=== PATIENT | male | born 1970 | race American Indian/Alaskan Native ===

== ENCOUNTER 2021-11-21 20:55 | Inpatient (IN) | payer SELFPAY ==
--- NOTE | 2021-11-21 21:17 | Emergency Department Report ---
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 According to EMS who provided the informations from the family who the EMS said that they were not very helpful (and likely not coming to the hospital); did not provide a medication list said that patient asked for orange juice and a family member went to the kitchen to get it and when the family member returned, they found the patient on the floor passed out and urinated on himself and also became slurred speech. According to the EMS patient has right-sided deficit from prior stroke and that is all they know of. SPOKE TO DR. DAVID; PENDING RECOMMENDATIONS. - Related Data Allergies Allergy/AdvReac Type Severity Reaction Status Date / Time aspirin Allergy Hives Verified 11/21/21 22:14 ED Review of Systems ROS: Stated complaint: POSS STROKE Other details as noted in HPI Comment: Unobtainable due to pts medical conditions ED Past Medical Hx - Past Medical History Previous Medical History?: Yes Hx Hypertension: Yes Hx CVA: Yes ED Physical Exam - General General appearance: alert - Head Head exam: Present: atraumatic, normocephalic, normal inspection - Eye Eye exam: Present: normal appearance, PERRL, EOMI Pupils: Present: normal accommodation - ENT ENT exam: Present: normal exam, mucous membranes moist - Neck Neck exam: Present: normal inspection, full ROM - Respiratory Respiratory exam: Present: normal lung sounds bilaterally - Cardiovascular Cardiovascular Exam: Present: regular rate - GI/Abdominal GI/Abdominal exam: Present: soft - Extremities Exam Extremities exam: Present: other (COMPLETE RIGHT SIDED WEAKNESS; UNABLE TO LIFT UP. LEFT LOWER EXTRMEITY WEAKNESS; SOME EFFORT AGAINST GRAVITY. 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) - Neurological Exam Neurological exam: Present: alert - Skin Skin exam: Present: normal color ED Course Vital Signs 11/21/21 11/21/21 11/21/21 20:55 21:34 21:45 Temperature 98 F Pulse Rate 101 H 105 H Respiratory 18 25 H Rate Blood Pressure 219/119 Blood Pressure [Left] O2 Sat by Pulse 98 93 98 Oximetry 0811/21/21 11/21/21 22:01 22:15 22:31 Temperature Pulse Rate 100 H 97 H 97 H Respiratory 28 H 28 H 28 H Rate Blood Pressure 219/119 211/111 215/110 Blood Pressure [Left] O2 Sat by Pulse 98 99 99 Oximetry 11/21/21 11/21/21 11/21/21 22:34 22:35 22:41 Temperature Pulse Rate 92 H 96 H 100 H Respiratory 27 H 25 H Rate Blood Pressure 211/119 218/116 Blood Pressure 211/119 [Left] O2 Sat by Pulse 98 98 Oximetry 11/21/21 11/21/21 11/21/21 22:45 22:51 22:55 Temperature Pulse Rate 104 H 106 H 106 H Respiratory 26 H 27 H 25 H Rate Blood Pressure 206/113 194/108 191/106 Blood Pressure [Left] O2 Sat by Pulse 98 97 97 Oximetry 11/21/21 11/21/21 11/21/21 23:01 23:05 23:11 Temperature Pulse Rate 111 H Respiratory Rate Blood Pressure 192/103 184/100 178/99 Blood Pressure [Left] O2 Sat by Pulse 96 96 97 Oximetry - Reevaluation(s) Reevaluation #1: 11/21/21 22:05 Since saw the patient patient has significant improvement. Spoke to the neurologist and neurology spoke to the patient which we will go and do tPA. Patient stated he was 265 pounds. I have informed the charge nurse and also the nurse that we will be doing tPA as time sensitive. 11/21/21 22:[address] QUEZADA; WAITING TO SPEAK TO DR. 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 ED Disposition Clinical Impression: Stroke, Acute pericarditis Disposition: ADMITTED INPATIENT Is pt being admited?: Yes Does the pt Need Aspirin: Yes Condition: Stable Time of Disposition: 22:43
--- NOTE | 2021-11-21 21:20 | Cat Scan Report ---
CT HEAD WITHOUT CONTRAST INDICATION / CLINICAL INFORMATION: STROKE. TECHNIQUE: All CT scans at this location are performed using CT dose reduction for ALARA by means of automated exposure control. COMPARISON: None available. FINDINGS: BRAIN PARENCHYMA: Large area of encephalomalacia involving the left parietal lobe related to remote i nfarct. Additional smaller areas of remote infarct of the right parietal lobe and bilateral occipital lobes. Moderate chronic small vessel ischemic changes. No evidence of recent infarct. No acute intra cranial hemorrhage. No mass effect or midline shift. VENTRICULAR SYSTEM/EXTRA-AXIAL SPACES: Ventricles are normal for age. No extra-axial fluid collection . ORBITS: Normal as visualized. SKELETAL SYSTEM/SOFT TISSUES: Normal bones and soft tissues. PARANASAL SINUSES/MASTOID AIR CELLS: No significant abnormality. ADDITIONAL FINDINGS: None. IMPRESSION: 1. No evidence of acute intracranial abnormality. 2. Chronic ischemic changes, as above. Signer Name: Shai Sky MD Signed: 11/21/2021 9:16 PM Workstation Name: [id number]
[2021-11-21 21:31] LABS: Hematocrit 47.5 % (35.5-45.6); Hemoglobin 15.4 gm/dl (11.8-15.2); Mean Corpuscular HGB Conc 32 % (32-34); Mean Corpuscular Volume 91 fl (84-94); Platelet Count 285 K/mm3 (140-440); Red Blood Count 5.24 M/mm3 (3.65-5.03); Red Cell Distribution Width 14.7 % (13.2-15.2)
[2021-11-21] MEDS ORDERED: SODIUM CHLORIDE 0.9% 1000 ML 1,000 ML IV ONE (21:32)
[2021-11-21 21:42] LABS: INR 0.92 (0.87-1.13)
[2021-11-21 21:43] LABS: Partial Thromboplastin Time 25.2 Sec. (24.2-36.6)
[2021-11-21 21:48] LABS: Alanine Aminotransferase 12 units/L (7-56); Albumin 4.3 g/dL (3.9-5); BUN/Creatinine Ratio 16; Blood Urea Nitrogen 13 mg/dL (9-20); Calcium 9.8 mg/dL (8.4-10.2); Hemolysis Index 32
--- NOTE | 2021-11-21 21:51 | XRay Report ---
XR chest 1V ap INDICATION / CLINICAL INFORMATION: STROKE. COMPARISON: None available. FINDINGS: SUPPORT DEVICES: None. HEART /PULMONARY VASCULATURE: Cardiac enlargement with pulmonary vasculature congestion. LUNGS / PLEURA: Diffuse increased interstitial prominence, likely reflecting edema. No focal airspace consolidation. No sizable pleural effusion. No pneumothorax. ADDITIONAL FINDINGS: No significant additional findings. IMPRESSION: Findings indicative of volume overload/CHF with interstitial edema. Signer Name: Shai Sky MD Signed: 11/21/2021 9:47 PM Workstation Name: [id number]
[2021-11-21] MEDS ORDERED: SODIUM CHLORIDE 0.9% 50 ML IVPB IV ONE (22:01)
[2021-11-21] MEDS ORDERED: niCARdipine DRIP 40 MG/200 ML BAG IV ONE (22:01)
[2021-11-21] MEDS ORDERED: ALTEPLASE 100 MG INJ KIT IV ONE ×2 (22:01)
--- NOTE | 2021-11-21 22:07 | Emergency Department Report ---
Blank Doc - Documentation Documentation: [facility] Consult Note # Demographics Consult Type: Acute Stroke Level 1 (0-4.5 hrs) Patient Location: Emergency Room First Name: Ross Last Name: Kyara Date of : 1970 Age: 51 Facility: [facility] Time of Initial Page (Eastern Time): 11/21/2021, 20:41 Time of Return Call (Eastern Time): 11/21/2021, 20:41 # HPI History: 51 year old male with hx of prior stroke with right sided weakness that is old. Family member found him on the floor. Patient was doing fine talking to familydember when they stepped out and when came back patient was on the floor. Found to have new weakness on the left side. Unclear if patient on blood thinners. Patient states he is on plavix. Brother at bedside states he was confused earlier but now improving. Last Known Normal: 8 pm # Scores Level of Consciousness 1a: [1] = Not alert; but arousable by minor stim LOC Questions 1b: [1] = Answers one correctly LOC Commands 1c: [0] = Performs both tasks correctly Best Gaze 2: [0] = Normal Visual 3: [0] = No visual loss Facial Palsy 4: [0] = Normal symmetrical movements Motor Arm Left 5a: [0] = No drift Motor Arm Right 5b: [0] = No drift Motor Leg Left 6a: [0] = No drift Motor Leg Right 6b: [3] = No effort against gravity Limb Ataxia 7: [0] = Absent Sensory 8: [0] = Normal Best Language 9: [1] = Jgbr-ap-jqnhdcno aphasia Dysarthria 10: [1] = Hdyx-sn-inoeaini dysarthria Extinction and Inattention 11: [0] = No abnormality NIHSS Total: 7 # PMH-FH-SH Past Medical History: stroke Medications: plavix # Data Head CT: no bleed per radiologist read # Assessment Impression: 51 year old, found on the floor by brother. Hx of stroke in the past but new deficits of dysarthria, aphasia as well as drowsiness. Concerned about another stroke. Recommend tpa. Patient is within the window # Plan Thrombolytic/Intervention: IV thrombolytic and possible IA candidate Thrombolytic Dosing: IV alteplase 0.9 mg/kg, max dose 90 mg; 10% of dose given over 1 minute IVP, remaining 90% given as infusion over 1 hour Possible IA Candidate: CTA pending Time IV Thrombolytic Recommended ([place] Time): 11/21/2021, 21:05 Target Blood Pressure: SBP < 180 SBP > 120 DBP < 105 Labs: CBC comprehensive metabolic panel hemoglobin A1c lipid panel troponin TSH urine drug screen ua Imaging: (urgency: STAT): CT Head without contrast CT Angiogram Head and CT Angiogram Neck Imaging: (urgency: routine): MRI Brain without contrast Diagnostic Test: echo with bubble study Therapy/Evaluation: PT/OT evaluation speech/swallow consultation Thrombolytic Administration Recommendations: I reviewed the risks/benefits/alternatives of IV thrombolytic therapy with the patient. They understand there is potential of life threatening hemorrhage from IV thrombolysis. I stated that I believe benefits outweighs risk. They wish to proceed with IV thrombolytic therapy. I have collected independent history specific to time last normal or last known well. We have collaborated with the ED provider and at this time, we have the most current timeline with the information that is available. BP goal< 180/105 for 24hrs post Thrombolytic administration Use Labetolol 10-20mg IV prn or Nicardipine gtt to maintain BP parameters No antiplatelets or anticoagulants for next 24 hrs unless indicated for emergent IA procedure or other life threatening situation ICU admission Call back if there is any decline in neurological condition Transfer to facility that is IA capable for consideration of mechanical thrombectomy symptoms deemed to be disabling, despite low NIHSS Other: If patient has any neurological deterioration please call me back immediately telemetry monitoring seizure precautions I have discussed my recommendations with the referring provider Disposition: admit # Demographics First Name: Ross Last Name: Kyara Facility: [facility]
[2021-11-21 22:22] LABS: Chol/HDL Ratio 7.31 %; HDL Cholesterol 32 mg/dL (40-59); LDL Cholesterol,Direct 168 mg/dL (50-130)
[2021-11-21] MEDS ORDERED: ACETAMINOPHEN 325 MG TAB PO PRN (23:12)
[2021-11-21] MEDS ORDERED: ONDANSETRON 4 MG/2 ML INJ IV PRN (23:12)
[2021-11-21] MEDS ORDERED: DEXTROSE 50% IN WATER (25GM) 50 ML SYRINGE IV PRN (23:12)
[2021-11-21] MEDS ORDERED: ALBUTEROL 2.5 MG/3 ML NEBU IH PRN (23:19)
[2021-11-21] MEDS ORDERED: MORPHINE 4 MG/1 ML INJ IV PRN (23:19)
[2021-11-21] MEDS ORDERED: MORPHINE 2 MG/1 ML INJ IV PRN (23:19)
--- NOTE | 2021-11-21 23:28 | History and Physical Report ---
History of Present Illness Date of examination: 11/21/21 Date of admission: 11/21/21 Chief complaint: Slurred speech Stroke like symptoms History of present illness: 51-year-old male with medical history of CVA, hypertension , most likely diabetes was brought in by EMS with concerns of possible stroke-like symptoms. According to EMS who provided the informations from the family who the EMS said that they were not very helpful (and likely not coming to the hospital); did not provide a medication list said that patient asked for orange juice and a family member went to the kitchen to get it and when the family member returned, they found the patient on the floor passed out and urinated on himself and also became slurred speech. According to the EMS patient has right-sided deficit from prior stroke and that is all they know of. In the emergency room initial CT scan of the head shows no evidence of acute intracranial abnormality. Chronic ischemic changes. Subsequently patient was seen and evaluated by telemetry neurology and patient is getting tPA. Patient also has elevated blood pressure patient is on Cardene drip. Patient also found to have acute pericarditis as per ER physician, In the emergency room patient is found to have glucose of 264, lactic acid 2.60, total cholesterol of 234, triglyceride 156, LDL 168 Past History Past Medical History: diabetes, hypertension, stroke Past Surgical History: No surgical history Social history: no significant social history Family history: hypertension Medications and Allergies Allergies Allergy/AdvReac Type Severity Reaction Status Date / Time aspirin Allergy Hives Verified 11/21/21 22:14 Active Meds: Active Medications Nicardipine/Sodium Chloride (Cardene Drip 40 Mg/200 Ml) 40 mg in 200 mls @ 25 mls/hr IV ONCE ONE; Protocol Stop: 11/22/21 06:00 Last Titration: 11/21/21 23:13 Dose: 15 mg/hr, 75 mls/hr Review of Systems All systems: negative Neurological: weakness, change in speech Exam - Constitutional Vitals: Temp Pulse Resp BP Pulse Ox 98 F 111 H 25 H 178/99 97 11/21/21 20:55 11/21/21 23:11 11/21/21 22:55 11/21/21 23:11 11/21/21 23:11 General appearance: Present: no acute distress, well-nourished - EENT Eyes: Present: PERRL ENT: hearing intact, clear oral mucosa - Neck Neck: Present: supple, normal ROM - Respiratory Respiratory effort: normal Respiratory: bilateral: CTA - Cardiovascular Heart Sounds: Present: S1 & S2. Absent: rub, click - Extremities Extremities: pulses symmetrical, No edema Peripheral Pulses: within normal limits - Abdominal General gastrointestinal: Present: soft, non-tender, non-distended, normal bowel sounds Male genitourinary: Present: normal - Integumentary Integumentary: Present: clear, warm, dry - Musculoskeletal Musculoskeletal: gait normal, strength equal bilaterally - Psychiatric Psychiatric: appropriate mood/affect, intact judgment & insight - Neurologic Neurologic: CNII-XII intact, moves all extremities, other (Slurred speech,) HEART Score - HEART Score Troponin: Troponin T < 0.010 ng/mL (0.00-0.029) 11/21/21 21:25 Results - Labs CBC & Chem 7: 11/21/21 21:25 11/21/21 21:25 Labs: Laboratory Last Values WBC 12.1 K/mm3 (4.5-11.0) H 11/21/21 21:25 RBC 5.24 M/mm3 (3.65-5.03) H 11/21/21 21:25 Hgb 15.4 gm/dl (11.8-15.2) H 11/21/21 21:25 Hct 47.5 % (35.5-45.6) H 11/21/21 21:25 MCV 91 fl (84-94) 11/21/21 21:25 MCH 29 pg (28-32) 11/21/21 21: MCHC 32 % (32-34) 11/21/21 21:25 RDW 14.7 % (13.2-15.2) 11/21/21 21:25 Plt Count 285 K/mm3 (140-440) 11/21/21 21:25 PT 13.3 Sec. (12.2-14.9) 11/21/21 21:25 INR 0.92 (0.87-1.13) 11/21/21 21:25 APTT 25.2 Sec. (24.2-36.6) 11/21/21 21:25 Sodium 139 mmol/L (137-145) 11/21/21 21:25 Potassium 3.8 mmol/L (3.6-5.0) 11/21/21 21:25 Chloride 103.5 mmol/L (98-107) 11/21/21 21:25 Carbon Dioxide 19 mmol/L (22-30) L 11/21/21 21:25 Anion Gap 20 mmol/L 11/21/21 21:25 BUN 13 mg/dL (9-20) 11/21/21 21:25 Creatinine 0.8 mg/dL (0.8-1.3) 11/21/21 21:25 Estimated GFR > 60 ml/min 11/21/21 21:25 BUN/Creatinine Ratio 16 % 11/21/21 21:25 Glucose 264 mg/dL (75-100) H 11/21/21 21:25 Lactic Acid 2.60 mmol/L (0.7-2.0) H* 11/21/21 22:01 Calcium 9.8 mg/dL (8.4-10.2) 11/21/21 21:25 Magnesium 1.90 mg/dL (1.7-2.3) 11/21/21 21:25 Total Bilirubin 0.50 mg/dL (0.1-1.2) 11/21/21 21:25 AST 16 units/L (5-40) 11/21/21 21:25 ALT 12 units/L (7-56) 11/21/21 21:25 Alkaline Phosphatase 81 units/L (35-129) 11/21/21 21:25 Total Creatine Kinase 141 units/L (55-170) 11/21/21 22:01 Troponin T < 0.010 ng/mL (0.00-0.029) 11/21/21 21:25 NT-Pro-B Natriuret Pep 474.9 pg/mL (0-450) H 11/21/21 21:25 Total Protein 7.4 g/dL (6.3-8.2) 11/21/21 21:25 Albumin 4.3 g/dL (3.9-5) 11/21/21 21:25 Albumin/Globulin Ratio 1.4 % 11/21/21 21:25 Triglycerides 156 mg/dL (2-149) H 11/21/21 21:25 Cholesterol 234 mg/dL (50-199) H 11/21/21 21:25 LDL Cholesterol Direct 168 mg/dL (50-130) H 11/21/21 21:25 HDL Cholesterol 32 mg/dL (40-59) L 11/21/21 21:25 Cholesterol/HDL Ratio 7.31 % 11/21/21 21:25 Plasma/Serum Alcohol < 0.01 % (0-0.07) 11/21/21 22:01 - Imaging and Cardiology Chest x-ray: report reviewed CT Scan - head: report reviewed Assessment and Plan VTE prophylaxis?: Chemical Plan of care discussed with patient/family: Yes - Patient Problems (1) Stroke Current Visit: Yes Status: Acute Plan to address problem: Admit the patient to the critical care unit. NPO. Normal saline at the rate of 100 cc/h. Patient is getting tPA. Lipitor 40 mg p.o. daily. MRI of the brain and MRA of the brain and neck with and without contrast. Neurology evaluation. (2) Hypertension Current Visit: Yes Status: Acute Plan to address problem: Labetalol 20 mg IV x1. Patient is on nicardipine drip as per protocol. We will monitor the blood pressure closely (3) Hyperglycemia Current Visit: Yes Status: Acute Plan to address problem: Accu-Chek every 6 hours with Humalog moderate dose coverage. Diabetic education. We continue the home medication (4) Lactic acidosis Current Visit: Yes Status: Acute Plan to address problem: Normal saline at the rate of 100 cc/h. Rocephin 2 g IV daily. We will recheck the lactic acid in 4 hours (5) Acute pericarditis Current Visit: Yes Status: Acute Plan to address problem: Patient is a status post tPA. Lipitor 40 mg p.o. daily. Tylenol 650 mg p.o. every 6 hours as needed. Echocardiogram. Cardiology evaluation. (6) Hyperlipidemia Current Visit: Yes Status: Acute Plan to address problem: Lipitor 40 mg p.o. daily. We will recheck the lipid panel (7) DVT prophylaxis Current Visit: Yes Status: Acute Plan to address problem: SCD for DVT prophylaxis because patient is a status post tPA. Pepcid 20 mg IV every 12 hours for GI prophylaxis. Patient is a full code
[2021-11-21] MEDS ORDERED: SODIUM CHLORIDE 0.9% 1000 ML 1,000 ML IV SCH (23:30)
[2021-11-21] MEDS ORDERED: cefTRIAXone/NS 2 GM/100 ML 2 GM/100 ML BAG IV SCH (23:45)
--- NOTE | 2021-11-22 09:47 | Electrocardiograph Report ---
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
--- NOTE | 2021-11-22 09:47 | Electrocardiograph Report ---
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
[2021-11-22] MEDS ORDERED: FAMOTIDINE 20 MG/2 ML INJ IV SCH (10:00)
[2021-11-22] MEDS: IPRATROPIUM/ALBUTEROL SULFATE 3 ML AMPUL.NEB IH SCH ×4 (10:07→20:17)
[2021-11-22] MEDS: INSULIN LISPRO 100 UNIT/ML SUB-Q SCH ×3 (10:07→21:48)
[2021-11-22 10:40] LABS: Hemoglobin 15.4 gm/dl (11.8-15.2); Mean Corpuscular HGB Conc 33 % (32-34); Mean Corpuscular Volume 89 fl (84-94); Platelet Count 263 K/mm3 (140-440); Red Blood Count 5.15 M/mm3 (3.65-5.03)
[2021-11-22 11:03] LABS: Blood Urea Nitrogen 10 mg/dL (9-20); Calcium 9.7 mg/dL (8.4-10.2); Hemolysis Index 8
[2021-11-22 11:28] LABS: BUN/Creatinine Ratio 17
--- NOTE | 2021-11-22 11:36 | Consultation ---
History of Present Illness - Reason for Consult Consult date: 11/22/21 s/p TPA for stroke - History of Present Illness 51 y/o obese, male with prior history of CVA's admitted with stroke like sy mptoms s/p TPA and admitted to ICU for 24 hour observation post TPA. Past History Past Medical History: diabetes, hypertension, stroke Past Surgical History: No surgical history Social history: no significant social history Family history: hypertension Medications and Allergies Allergies Allergy/AdvReac Type Severity Reaction Status Date / Time aspirin Allergy Hives Verified 11/21/21 22:14 Active Meds: Active Medications Acetaminophen (Acetaminophen 325 Mg Tab) 650 mg PO Q4H PRN PRN Reason: Pain MILD(1-3)/Fever >100.5/BANUELOS Albuterol (Albuterol 2.5 Mg/3 Ml Nebu) 2.5 mg IH Q3HRT PRN PRN Reason: Shortness Of Breath Albuterol/Ipratropium (Ipratropium/Albuterol Sulfate 3 Ml Ampul.Neb) 1 ampul IH Q6HRT [facility] Last Admin: 11/22/21 11:07 Dose: 1 ampul Atorvastatin Calcium (Atorvastatin 40 Mg Tab) 40 mg PO QHS SHARON Dextrose (Dextrose 50% In Water (25gm) 50 Ml Syringe) 50 ml IV Q30MIN PRN; Protocol PRN Reason: Hypoglycemia Famotidine (Famotidine 20 Mg/2 Ml Inj) 20 mg IV BID [facility] Last Admin: 11/22/21 11:22 Dose: 20 mg Insulin Human Lispro (Insulin Lispro 100 Unit/Ml) 0 unit SUB-Q Q6HR SHARON; P rotocol Last Admin: 11/22/21 10:07 Dose: Not Given Ondansetron HCl (Ondansetron 4 Mg/2 Ml Inj) 4 mg IV Q8H PRN PRN Reason: Nausea And Vomiting Sodium Chloride (Sodium Chloride 0.9% 10 Ml Flush Syringe) 10 ml IV BID [facility] Last Admin: 11/22/21 11:22 Dose: 10 ml Sodium Chloride (Sodium Chloride 0.9% 10 Ml Flush Syringe) 10 ml IV PRN PRN PRN Reason: LINE FLUSH Review of Systems All systems: negative Exam - Constitutional Vitals: Temp Pulse Resp BP Pulse Ox 97.8 F 86 25 H 162/99 94 11/22/21 10:02 11/22/21 11:17 11/22/21 11:17 11/22/21 09:14 11/22/21 11:17 General appearance: Present: no acute distress, obese - EENT Eyes: Present: PERRL ENT: hearing intact - Neck Neck: Present: supple, normal ROM, other (large in circumference) - Respiratory Respiratory effort: normal Respiratory: bilateral: CTA Results - Labs CBC & Chem 7: 11/22/21 10:00 11/22/21 10:00 Labs: Abnormal lab results 11/21/21 11/21/21 11/21/21 Range/Units 21:25 21:25 21:25 WBC 12.1 H (4.5-11.0) K/mm3 RBC 5.24 H (3.65-5.03) M/mm3 Hgb 15.4 H (11.8-15.2) gm/dl Hct 47.5 H (35.5-45.6) % Sodium (137-145) mmol/L Carbon Dioxide 19 L (22-30) mmol/L Creatinine (0.8-1.3) mg/dL Glucose 264 H (75-100) mg/dL POC Glucose (70-105) mg/dL Hemoglobin A1c (4-6) % Lactic Acid (0.7-2.0) mmol/L NT-Pro-B Natriuret Pep 474.9 H (0-450) pg/mL Triglycerides 156 H (2-149) mg/dL Cholesterol 234 H (50-199) mg/dL LDL Cholesterol Direct 168 H (50-130) mg/dL HDL Cholesterol 32 L (40-59) mg/dL 11/21/21 11/22/21 11/22/21 Range/Units 22:01 06:38 10:00 WBC 12.7 H (4.5-11.0) K/mm3 RBC 5.15 H (3.65-5.03) M/mm3 Hgb 15.4 H (11.8-15.2) gm/dl Hct 46.0 H (35.5-45.6) % Sodium (137-145) mmol/L Carbon Dioxide (22-30) mmol/L Creatinine (0.8-1.3) mg/dL Glucose (75-100) mg/dL POC Glucose 188 H (70-105) mg/dL Hemoglobin A1c (4-6) % Lactic Acid 2.60 H* (0.7-2.0) mmol/L NT-Pro-B Natriuret Pep (0-450) pg/mL Triglycerides (2-149) mg/dL Cholesterol (50-199) mg/dL LDL Cholesterol Direct (50-130) mg/dL HDL Cholesterol (40-59) mg/dL 11/22/21 11/22/21 Range/Units 10:00 10:00 WBC (4.5-11.0) K/mm3 RBC (3.65-5.03) M/mm3 Hgb (11.8-15.2) gm/dl Hct (35.5-45.6) % Sodium 135 L (137-145) mmol/L Carbon Dioxide (22-30) mmol/L Creatinine 0.6 L (0.8-1.3) mg/dL Glucose 160 H (75-100) mg/dL POC Glucose (70-105) mg/dL Hemoglobin A1c 8.4 H (4-6) % Lactic Acid (0.7-2.0) mmol/L NT-Pro-B Natriuret Pep (0-450) pg/mL Triglycerides (2-149) mg/dL Cholesterol (50-199) mg/dL LDL Cholesterol Direct (50-130) mg/dL HDL Cholesterol (40-59) mg/dL - Imaging and Cardiology Chest x-ray: image reviewed (cardiomegaly with pulmonary vascular congestion, could be pulmonary edema) Assessment and Plan 51 y/o obese male with prior history of strokes admitted with stroke like symptoms s/p TPA 1. Await neurology recs. Assuming this is an ischemic stroke, they usually like to run pressures slightly high patient has systolics in the 200' and diatolic's >100. Needs to be addressed. Per patient, always high. would like to treat but need to see where neuro feels comfortable with BP. 2. Per patient symptoms about the same, no real improvement, getting echo now. Continue q1 hour neuro checks 3. Needs repeat Head CT vs MRI 4. Per patient was on daily plavix and did not miss any doses 5. Follow up echo 6. Weight loss and dietary changes. Guarded prognosis.
[2021-11-22] MEDS ORDERED: FUROSEMIDE 20 MG/2 ML INJ IV ONE (11:57)
--- NOTE | 2021-11-22 12:15 | Cat Scan Report ---
CTA neck without and with intravenous contrast material CLINICAL HISTORY: cva TECHNIQUE: Following acquisition of a timing bolus 0.625 mm thick contiguous axial scans were obtained from aort ic arch to the skull base during rapid bolus intravenous contrast infusion. In addition to evaluation of axial source images multiplanar reconstructions were produced and reviewed for this report. 3 henrietta ne MIP reconstructions were produced and reviewed. Contrast dose report: Omnipaque 350: 100 ml, administered intravenously All CT examinations performed at this facility utilize modulated dose reduction, iterative reconstruc tion or weight-based dosing, as appropriate, to obtain a radiation dose which is as low as can reason ably be achieved. FINDINGS: Thoracic aorta:No abnormalities are identified along the course of the thoracic aorta..The origins of the great vessels have an unremarkable appearance. Brachiocephalic artery, left common carotid arter y origin and left subclavian artery all have an unremarkable appearance. Right carotid artery: Combination of calcified and soft plaque is observed at the right carotid bulb extending into the proximal R ICA. There is no associated stenosis. Right common carotid artery has a normal appearance. Mid and distal cervical segments of the right internal carotid artery have a norm al appearance. Left carotid artery: Mild calcified plaque is observed at the left carotid bulb extending into the pr oximal LICA. There is no associated stenosis. Left common carotid artery has a normal appearance. Mid and distal LICA have a normal appearance. Posterior circulation:The vertebral arteries have an unremarkable appearance. Both vertebral arteries contribute to the basilar artery origin. The basilar artery has an unremarkable appearance. The degree of stenosis, if any, is determined utilizing NASCET like criteria. In this case there is no indication of hemodynamically significant stenosis at the carotid bifurcations or elsewhere. Evaluation of the nonvascular soft tissue structures reveal no abnormality. There is no indication of cervical lymphadenopathy. No abnormalities are seen along the course of the airway. Visualized porti ons of the parotid glands and the submandibular salivary glands have a normal appearance. Thyroid gla nd has a normal appearance. Evaluation of the lung apices reveals no evidence of lung nodule or infil trate. Evaluation of the cervical spine revealed no significant abnormalities. IMPRESSION: 1. No indication of hemodynamically significant stenosis at the carotid bifurcations or elsewhere. CTA head with intravenous contrast CLINICAL HISTORY: cva TECHNIQUE: 0.625 mm thick contiguous axial scans were obtained from the skull base to the skull vertex during r apid bolus administration of intravenous contrast material. Multiplanar reconstructions were produced in the coronal and sagittal planes. In addition 3 plane MIP instructions were produced and reviewed for this report. The axial source images and reconstructed images were reviewed for this report. CONTRAST DOSE REPORT: Blank: Contrast dose ml administered intravenously. All CT scans at this location are performed using CT dose reduction for ALARA by means of automated e xposure control. FINDINGS: Internal carotid arteries: Calcified atherosclerotic plaque is observed along the cavernous segments of both internal carotid arteries. This extends into the clinoid segments bilaterally. This is associ ated with stenosis. Maximum degree of stenosis is present in the cavernous segment of the right R ICA where a stenosis on the order of 70% is identified. Middle cerebral arteries:Normal and symmetrical M1 segments of the middle cerebral arteries are demon strated. No abnormalities are seen on evaluation of the insular or opercular branches. Anterior cerebral arteries:Bilaterally symmetrical A1 segments are demonstrated. No abnormalities are seen along the course of the A2 segments or their visualized pericallosal branches. An intact anteri or communicating artery is observed. Vertebral arteries:Bilaterally symmetrical vertebral arteries are demonstrated. Both vertebral arteri es contribute to the basilar artery origin. Basilar artery:Basilar artery has an unremarkable appearance. Posterior cerebral arteries:Bilaterally symmetrical posterior cerebral arteries are identified. Post erior communicating arteries are not identified. [place]:Not intact. see above. Dural sinuses: Dural venous sinuses are well demonstrated on this exam. There is no evidence of dural sinus thrombosis. IMPRESSION: 1. Calcified atherosclerotic plaque is observed along the cavernous segments of both internal carotid arteries. There is a stenosis on the order of 70% severity in the right cavernous sinus IAC. 2. Otherwise no indication of hemodynamically significant intracranial stenosis. No indication of lar ge vessel occlusion. Signer Name: Sanchez Anderson MD Signed: 11/22/2021 12:11 PM Workstation Name: [id number]
[2021-11-22 12:53] LABS: Mucus,Urine FEW /HPF
[2021-11-22 13:03] LABS: Color,Urine Straw (Yellow)
--- NOTE | 2021-11-22 13:41 | Progress Note ---
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, decreased peripheral vision and stutter), HTN, IA (2019), HLD, and gout admitted with CVA Neuro: CVA, h/o CVA (2020) with residual left-sided weakness, decreased peripheral vision and stutter -Neurology consulted, appreciate recommendations -Per documentation family noted left-sided weakness -LKW 8 PM 11/21 -Initial NIHSS 7 -S/p tPA -Initial CT head shows no evidence of acute intracranial abnormality, chronic ischemic changes -CTA neck no indication of hemodynamic significant stenosis of the carotid bifurcations or elsewhere -CTA head shows calcified atherosclerotic plaque observed along the cavernous segments of both internal carotid arteries, stenosis in the order of 70% severity in the right cavernous sinus IAC, otherwise no indication of hemodynamically significant intracranial stenosis, no indication of large vessel occlusion -MRI brain pending -[address] head at 2200 11/22 -Echo pending -Per teleneurology blood pressure goal of less than 180/105 for 24 hours post tPA -labetalol as needed -Patient's home medication includes donepezil, lisinopril, metoprolol, amlodipine, citalopram, Plavix and Lipitor -Lipid panel noted -Neuro checks per protocol -Patient has allergy to aspirin -Started on Lipitor -Reorientation as needed -Maintain sleep-wake cycle -As needed analgesia -PT/OT/ST consulted -Resume home Celexa Cardiac: Hypertensive emergency, h/o HTN, IA (2019), HLD -Presented with 219/119 -given labatalol, cardent gtt not started -Cardiology consulted, appreciate recommendations -ED concerned about pericarditis from ECG from admit -Blood pressure monitoring per protocol -prn labatalol -Echocardiogram pending -Home meds include amlodipine, lisinopril, metoprolol, and Lipitor -Admit probnp 474 -Lasix Respiratory: Acute hypoxic respiratory failure -Patient was on nasal cannula weaned to room air -Supplemental oxygen as needed -SPO2 monitor per protocol -Pulmonary hygiene GI: Obesity -Passed bedside swallow evaluation -CC cardiac diet -PPI -BR: Colace. -Encourage weight loss and dietary changes outpatient : Slight hyponatremia -Monitor intake and output -Renally dose medications -Avoid nephrotoxic medications -Trend BMP ID: SIRS, POA -Presented with leukocytosis, lactic acidosis, CXR with volume overload/CHF with interstitial edema -Lactic acid 2.6 on admit, now 1.3 -Monitor WBC and temperature curve Endo: DM -Hemaglobin 8.4 -SSI -Accu-Cheks ACHS -Avoid hypoglycemia Heme: Leukocytosis -Trend CBC -Transfuse hemoglobin less than 7 -SCDs to BLE while in bed The high probability of a clinically significant, sudden or life threatening deterioration of the [neuro] system(s) required my full and direct attention, intervention and personal management. The aggregate critical care time was [60] minutes. This time is in addition to time spent performing reported procedures but includes the following: [x] Data Review and interpretation [x] Patient assessment and monitoring of vital signs [x] Documentation [x] Medication orders and management Disposition Plan: icu Total Time Spent with Patient (Minutes): 60 History Interval history: This is a 51-year-old male with CVA in 2020 with residual right-sided weakness for which he uses a wheelchair for mobility, decreased peripheral vision and stutter, hypertension, IA in 2019, gout, hyperlipidemia presented to the [facility] department 11/21 via EMS for possible strokelike symptoms. In the emergency department she was evaluated by teleneurology with initial NIHSS of 7 and deemed he was a candidate for tPA. In the emergency department patient's ECG was also concerning for pericarditis to the ED physician. Patient was hypertensive in the ED and was started on a Cardene drip. Patient was admitted to the hospital service with consults to [facility], cardiology and neurology. Hospital course to date: 11/22: Patient hypertensive, as needed labetalol ordered. Home medications include amlodipine, citalpram, Plavix, donepezil, lisinopril, metoprolol and Lipitor. Passed swallow eval. Started on CC cardiac diet. ECG reviewed, no diffuse ST elevation noted. Per technology services manager, patient does have a small pericardial effusion. Hospitalist Physical - Constitutional Vitals: Temp Pulse Resp BP Pulse Ox 97.9 F 84 21 171/99 94 11/22/21 12:00 11/22/21 12:16 11/22/21 12:16 11/22/21 12:16 11/22/21 12:16 General appearance: Present: no acute distress, obese - EENT Eyes: Present: PERRL, discharge (per patient, n peripheral vision since prior CV A) - Neck Neck: Present: normal ROM - Respiratory Respiratory effort: normal Respiratory: bilateral: diminished - Cardiovascular Rhythm: regular Heart Sounds: Present: S1 & S2. Absent: systolic murmur, diastolic murmur - Extremities Extremities: no ischemia, pulses intact, pulses symmetrical, No edema, normal temperature, normal color Peripheral Pulses: within normal limits - Abdominal General gastrointestinal: soft, non-tender, non-distended, normal bowel sounds - Integumentary Integumentary: Present: warm, dry - Psychiatric Psychiatric: cooperative, other (stutter at baseline) - Neurologic Neurologic: other (right sided weakness, RLE drift) - Allied Health Allied health notes reviewed: nursing, RT HEART Score - HEART Score Troponin: Troponin T < 0.010 ng/mL (0.00-0.029) 11/21/21 21:25 Results - Labs CBC & Chem 7: 11/22/21 10:00 11/22/21 10:00 Labs: Laboratory Last Values WBC 12.7 K/mm3 (4.5-11.0) H 11/22/21 10:00 RBC 5.15 M/mm3 (3.65-5.03) H 11/22/21 10:00 Hgb 15.4 gm/dl (11.8-15.2) H 11/22/21 10:00 Hct 46.0 % (35.5-45.6) H 11/22/21 10:00 MCV 89 fl (84-94) 11/22/21 10:00 MCH 30 pg (28-32) 11/22/21 10:00 MCHC 33 % (32-34) 11/22/21 10:00 RDW 15.0 % (13.2-15.2) 11/22/21 10:00 Plt Count 263 K/mm3 (140-440) 11/22/21 10:00 PT 13.3 Sec. (12.2-14.9) 11/21/21 21:25 INR 0.92 (0.87-1.13) 11/21/21 21:25 APTT 25.2 Sec. (24.2-36.6) 11/21/21 21:25 Sodium 135 mmol/L (137-145) L 11/22/21 10:00 Potassium 4.0 mmol/L (3.6-5.0) 11/22/21 10:00 Chloride 99.7 mmol/L (98-107) 11/22/21 10:00 Carbon Dioxide 22 mmol/L (22-30) 11/22/21 10:00 Anion Gap 17 mmol/L 11/22/21 10:00 BUN 10 mg/dL (9-20) 11/22/21 10:00 Creatinine 0.6 mg/dL (0.8-1.3) L 11/22/21 10:00 Estimated GFR > 60 ml/min 11/22/21 10:00 BUN/Creatinine Ratio 17 % 11/22/21 10:00 Glucose 160 mg/dL (75-100) H 11/22/21 10:00 POC Glucose 188 mg/dL (70-105) H 11/22/21 06:38 Hemoglobin A1c 8.4 % (4-6) H 11/22/21 10:00 Lactic Acid 1.30 mmol/L (0.7-2.0) 11/22/21 00:15 Calcium 9.7 mg/dL (8.4-10.2) 11/22/21 10:00 Magnesium 1.90 mg/dL (1.7-2.3) 11/21/21 21:25 Total Bilirubin 0.50 mg/dL (0.1-1.2) 11/21/21 21:25 AST 16 units/L (5-40) 11/21/21 21:25 ALT 12 units/L (7-56) 11/21/21 21:25 Alkaline Phosphatase 81 units/L (35-129) 11/21/21 21:25 Total Creatine Kinase 141 units/L (55-170) 11/21/21 22:01 Troponin T < 0.010 ng/mL (0.00-0.029) 11/21/21 21:25 NT-Pro-B Natriuret Pep 474.9 pg/mL (0-450) H 11/21/21 21:25 Total Protein 7.4 g/dL (6.3-8.2) 11/21/21 21:25 Albumin 4.3 g/dL (3.9-5) 11/21/21 21:25 Albumin/Globulin Ratio 1.4 % 11/21/21 21:25 Triglycerides 156 mg/dL (2-149) H 11/21/21 21:25 Cholesterol 234 mg/dL (50-199) H 11/21/21 21:25 LDL Cholesterol Direct 168 mg/dL (50-130) H 11/21/21 21:25 HDL Cholesterol 32 mg/dL (40-59) L 11/21/21 21:25 Cholesterol/HDL Ratio 7.31 % 11/21/21 21:25 Urine Color Straw (Yellow) 11/21/21 11:55 Urine Turbidity Clear (Clear) 11/21/21 11:55 Specific [place] (Man) 1.005 (1.003-1.030) 11/21/21 11:55 Ur Protein (Man) 1+ mg/dL (Negative) 11/21/21 11:55 Ur Ketones (Man) Negative (Negative) 11/21/21 11:55 Ur Nitrite (Man) Negative (Negative) 11/21/21 11:55 Ur Reducing Substances Not Reportable 11/21/21 11:55 Urine Bilirubin (Man) Negative (Negative) 11/21/21 11:55 Urine Ictotest Not Reportable 11/21/21 11:55 Leukocyte Esterase (Man) Negative (Negative) 11/21/21 11:55 Urine WBC (Auto) 3.0 /HPF (0.0-6.0) 11/21/21 11:55 Urine RBC (Auto) 2.0 /HPF (0.0-6.0) 11/21/21 11:55 U Epithel Cells (Auto) 1.0 /HPF (0-13.0) 11/21/21 11:55 Urine RBC (Manual) 4+ (Negative) 11/21/21 11:55 Urine Mucus Few /HPF 11/21/21 11:55 Plasma/Serum Alcohol < 0.01 % (0-0.07) 11/21/21 22:01 Matta/IV: Voiding Method Condom Catheter Active Medications - Current Medications Current Medications: Generic Name Dose Route Start Last Admin Trade Name Freq PRN Reason Stop Dose Admin Acetaminophen 650 mg 11/21/21 23:12 Acetaminophen 325 Mg Tab PO Q4H PRN Pain MILD(1-3)/Fever >100.5/BANUELOS Albuterol 2.5 mg 11/21/21 23:19 Albuterol 2.5 Mg/3 Ml Nebu IH Q3HRT PRN Shortness Of Breath Albuterol/Ipratropium 1 ampul 11/22/21 02:00 11/22/21 11:07 Ipratropium/Albuterol Sulfate 3 Ml Ampul.Neb IH 1 ampul Q6HRT SHARON Administration Atorvastatin Calcium 40 mg 11/22/21 22:00 Atorvastatin 40 Mg Tab PO QHS SHARON Citalopram Hydrobromide 20 mg 11/23/21 10:00 Citalopram 20 Mg Tab PO QDAY SHARON Dextrose 50 ml 11/21/21 23:12 Dextrose 50% In Water (25gm) 50 Ml Syringe IV Q30MIN PRN Hypoglycemia Protocol Docusate Sodium 100 mg 11/22/21 22:00 Docusate Sodium 100 Mg Cap PO BID SHARON Famotidine 20 mg 11/23/21 10:00 Famotidine 20 Mg Tab PO QDAY [facility] Insulin Human Lispro 0 unit 11/22/21 16:30 Insulin Lispro 100 Unit/Ml SUB-Q ACHS [facility] Protocol Labetalol HCl 20 mg 11/22/21 11:35 11/22/21 11:41 Labetalol 20 Mg/4 Ml Inj IV 20 mg ONCE PRN Administration Hypertension Ondansetron HCl 4 mg 11/21/21 23:12 Ondansetron 4 Mg/2 Ml Inj IV Q8H PRN Nausea And Vomiting Sodium Chloride 10 ml 11/22/21 10:00 11/22/21 11:22 Sodium Chloride 0.9% 10 Ml Flush Syringe IV 10 ml BID SHARON Administration Sodium Chloride 10 ml 11/21/21 23:12 Sodium Chloride 0.9% 10 Ml Flush Syringe IV PRN PRN LINE FLUSH Nutrition/Malnutrition Assess - Dietary Evaluation Nutrition/Malnutrition Findings: Nutrition Notes Start: 11/22/21 12:56 Freq: Status: Active Protocol: Document 11/22/21 12:56 TW (Rec: 11/22/21 13:02 TW [id number]) Nutrition Notes Need for Assessment generated from: MD Order,Education Initial or Follow up Brief Note Current Diagnosis Diabetes,Hypertension, Hyperlipidemia Other Pertinent Diagnosis CVA, lactic acidosis Current Diet Cardiac Labs/Tests Glucose 160 A1c 8.4 Pertinent Medications Reviewed Height 6 ft Weight 121.109 kg [place] Body Weight (kg) 80.90 BMI 36.2 Weight Status Obese Subjective/Other Information RD consulted for diet education. Pt has slurred speech and stroke like symptoms. Burn Absent Trauma Absent Minimum of two criteria No Nutrition Intervention Follow-Up By: 11/23/21 Additional Comments F/U for diet education
--- NOTE | 2021-11-22 15:39 | Consultation ---
History of Present Illness Consult date: 11/22/21 Consult reason: other (Abnormal EKG) History of present illness: The patient is a 51-year-old man who was brought to the hospital with a suspected stroke. In the emergency room, he was given tPA. At the time of his presentation, he was found with uncontrolled hypertension which necessitated IV antihypertensive therapy. Cardiology consultation was requested for an abnormal ECG. The ECG in the emergency room was analyzed by the computer with a preliminary reading of "suspected pericarditis", which prompted a cardiac consultation to assess for pericarditis. It will be noted that the patient has no symptoms of chest pain and no symptoms suggestive of clinical pericarditis. My review of the EKG shows sinus tachycardia at 101, with nonspecific ST segment changes, findings are not consistent with pericarditis. An echocardiogram was already ordered by the medical service, which will be reviewed and results reported. Past History Past Medical History: diabetes, hypertension, stroke Past Surgical History: No surgical history Social history: no significant social history Family history: hypertension Medications and Allergies Allergies Allergy/AdvReac Type Severity Reaction Status Date / Time aspirin Allergy Hives Verified 11/21/21 22:14 Active Meds: Active Medications Acetaminophen (Acetaminophen 325 Mg Tab) 650 mg PO Q4H PRN PRN Reason: Pain MILD(1-3)/Fever >100.5/BANUELOS Albuterol (Albuterol 2.5 Mg/3 Ml Nebu) 2.5 mg IH Q3HRT PRN PRN Reason: Shortness Of Breath Albuterol/Ipratropium (Ipratropium/Albuterol Sulfate 3 Ml Ampul.Neb) 1 ampul IH Q6HRT [facility] Last Admin: 11/22/21 14:33 Dose: 1 ampul Atorvastatin Calcium (Atorvastatin 40 Mg Tab) 40 mg PO QHS SHARON Citalopram Hydrobromide (Citalopram 20 Mg Tab) 20 mg PO QDAY SHARON Dextrose (Dextrose 50% In Water (25gm) 50 Ml Syringe) 50 ml IV Q30MIN PRN; Prot ocol PRN Reason: Hypoglycemia Docusate Sodium (Docusate Sodium 100 Mg Cap) 100 mg PO BID SHARON Famotidine (Famotidine 20 Mg Tab) 20 mg PO QDAY SHARON Insulin Human Lispro (Insulin Lispro 100 Unit/Ml) 0 unit SUB-Q ACHS SHARON; Protocol Labetalol HCl (Labetalol 20 Mg/4 Ml Inj) 10 mg IV Q4HR PRN PRN Reason: hypertension Lisinopril (Lisinopril 20 Mg Tab) 20 mg PO QDAY [facility] Metoprolol Tartrate (Metoprolol Tartrate 50 Mg Tab) 50 mg PO QDAY [facility] Ondansetron HCl (Ondansetron 4 Mg/2 Ml Inj) 4 mg IV Q8H PRN PRN Reason: Nausea And Vomiting Sodium Chloride (Sodium Chloride 0.9% 10 Ml Flush Syringe) 10 ml IV BID [facility] Last Admin: 11/22/21 11:22 Dose: 10 ml Sodium Chloride (Sodium Chloride 0.9% 10 Ml Flush Syringe) 10 ml IV PRN PRN PRN Reason: LINE FLUSH Review of Systems ROS unobtainable: due to mental status Physical Examination Vital Signs Temp Pulse Resp BP Pulse Ox 98 F 101 H 18 219/119 98 11/21/21 20:55 11/21/21 20:55 11/21/21 20:55 11/21/21 20:55 11/21/21 20:55 General appearance: other (Patient appears stuporous, but breathing comfortably on facemask oxygen.) HEENT: Positive: PERRL Neck: Positive: neck supple Cardiac: Positive: Reg Rate and Rhythm Lungs: Positive: Decreased Breath Sounds Neuro: Positive: Weakness (Generalized lethargy) Abdomen: Positive: Soft Male genitourinary: Positive: deferred Skin: Positive: Clear Extremities: Absent: edema Results 11/22/21 10:00 11/22/21 10:00 Cardiac Enzymes 11/21/21 Range/Units 21:25 AST 16 (5-40) units/L Coagulation 11/21/21 Range/Units 21:25 PT 13.3 (12.2-14.9) Sec. INR 0.92 (0.87-1.13) APTT 25.2 (24.2-36.6) Sec. Lipids 11/21/21 Range/Units 21:25 Triglycerides 156 H (2-149) mg/dL Cholesterol 234 H (50-199) mg/dL HDL Cholesterol 32 L (40-59) mg/dL Cholesterol/HDL Ratio 7.31 % CBC 11/21/21 11/22/21 Range/Units 21:25 10:00 WBC 12.1 H 12.7 H (4.5-11.0) K/mm3 RBC 5.24 H 5.15 H (3.65-5.03) M/mm3 Hgb 15.4 H 15.4 H (11.8-15.2) gm/dl Hct 47.5 H 46.0 H (35.5-45.6) % Plt Count 285 263 (140-440) K/mm3 Comprehensive Metabolic Panel 11/21/21 11/22/21 Range/Units 21:25 10:00 Sodium 139 135 L (137-145) mmol/L Potassium 3.8 4.0 (3.6-5.0) mmol/L Chloride 103.5 99.7 (98-107) mmol/L Carbon Dioxide 19 L 22 (22-30) mmol/L BUN 13 10 (9-20) mg/dL Creatinine 0.8 0.6 L (0.8-1.3) mg/dL Glucose 264 H 160 H (75-100) mg/dL Calcium 9.8 9.7 (8.4-10.2) mg/dL AST 16 (5-40) units/L ALT 12 (7-56) units/L Alkaline Phosphatase 81 (35-129) units/L Total Protein 7.4 (6.3-8.2) g/dL Albumin 4.3 (3.9-5) g/dL EKG interpretations - Telemetry EKG Rhythm: Sinus Tachycardia (With nonspecific ST segment changes) Assessment and Plan - Patient Problems (1) Abnormal ECG Current Visit: Yes Status: Acute Plan to address problem: Erroneous ECG reading from computer-generated analysis. Patient has no clinical or ECG evidence of pericarditis. No further cardiac intervention is warranted. An echocardiogram has been ordered, we will review for cardioembolic source of CVA and report results.
[2021-11-22] MEDS: DOCUSATE SODIUM 100 MG CAP PO SCH (21:47)
--- NOTE | 2021-11-22 23:11 | Cat Scan Report ---
CT HEAD WITHOUT CONTRAST INDICATION / CLINICAL INFORMATION: cva, s/p tpa, timed for 2200. TECHNIQUE: All CT scans at this location are performed using CT dose reduction for ALARA by means of automated e xposure control. COMPARISON: None available. FINDINGS: HEMORRHAGE: No evidence of intracranial hemorrhage or extra-axial fluid collection. EXTRA-AXIAL SPACES: Cortical sulci, sylvian fissures and basilar cisterns have an unremarkable appear ance. VENTRICULAR SYSTEM: The third and lateral ventricles are mildly enlarged reflecting central written c ortical parenchymal volume loss.. CEREBRAL PARENCHYMA: Multiple areas of encephalomalacia are observed secondary to infarction. The lar gest of these is present in the left frontoparietal region. Smaller cortical infarctions are observed in the right frontal lobe, right parietal lobe and in the occipital lobes bilaterally. Remote small deep infarction is demonstrated in the left allen radiata. Similar findings were present on recent p revious study 11/21/2021. There is been no significant change. Microvascular ischemic changes are demo nstrated in the white matter of both cerebral hemispheres. MIDLINE SHIFT OR HERNIATION: There is no mass effect. CEREBELLUM / BRAINSTEM: Brainstem and cerebellum have an unremarkable appearance. MIDLINE STRUCTURES:No abnormalities of the pituitary gland or pineal region are identified. INTRACRANIAL VESSELS: Calcified atherosclerotic plaque is observed along the course the cavernous seg ments of both internal carotid arteries. ORBITS: visualized portions of the orbits have an unremarkable appearance. SOFT TISSUES of HEAD: No significant abnormality. CALVARIUM: Evaluation of bone windows reveals no abnormalities. PARANASAL SINUSES / MASTOID AIR CELLS: Small retention cyst or polyp is present at the posterior aspe ct of the left maxillary sinus. Visualized paranasal sinuses are otherwise clear. Symmetrical pneumat ization of mastoid air cells is noted. IMPRESSION: 1. Multifocal regions of remote cortical infarction and remote small deep infarction as described abo ve. 2. No acute intracranial abnormality. No interval change. Signer Name: Sanchez Anderson MD Signed: 11/22/2021 11:07 PM Workstation Name: [id number]
[2021-11-23] MEDS: IPRATROPIUM/ALBUTEROL SULFATE 3 ML AMPUL.NEB IH SCH ×2 (02:50→12:15)
[2021-11-23 04:54] LABS: Hematocrit 43.8 % (35.5-45.6); Hemoglobin 14.4 gm/dl (11.8-15.2); Mean Corpuscular HGB Conc 33 % (32-34); Mean Corpuscular Volume 89 fl (84-94); Platelet Count 264 K/mm3 (140-440); Red Cell Distribution Width 14.8 % (13.2-15.2)
[2021-11-23 05:16] LABS: BUN/Creatinine Ratio 19; Blood Urea Nitrogen 15 mg/dL (9-20); Calcium 9.5 mg/dL (8.4-10.2); Hemolysis Index 6
[2021-11-23] MEDS: INSULIN LISPRO 100 UNIT/ML SUB-Q SCH ×4 (08:26→21:45)
[2021-11-23] MEDS ORDERED: LISINOPRIL 10 MG TAB PO SCH (10:00)
[2021-11-23] MEDS ORDERED: METOPROLOL TARTRATE 50 MG TAB PO SCH ×3 (10:00→22:00)
[2021-11-23] MEDS ORDERED: METOPROLOL SUCCINATE XL 25 MG TAB PO SCH (10:00)
[2021-11-23] MEDS: DOCUSATE SODIUM 100 MG CAP PO SCH ×2 (10:12→21:47)
[2021-11-23] MEDS: CITALOPRAM 20 MG TAB PO SCH ×2 (10:12→11:54)
[2021-11-23] MEDS: CLOPIDOGREL 75 MG TAB PO SCH (10:12)
[2021-11-23] MEDS: FAMOTIDINE 20 MG TAB PO SCH (10:12)
--- NOTE | 2021-11-23 10:38 | Progress Note ---
Assessment and Plan 51 y/o obese male with prior history of strokes admitted with stroke like symptoms s/p TPA 11/23/21: Stable for floor transfer. No further critical care needs. 1. Await neurology recs. Assuming this is an ischemic stroke, they usually like to run pressures slightly high patient has systolics in the 200' and diatolic's >100. Needs to be addressed. Per patient, always high. would like to treat but need to see where neuro feels comfortable with BP. 2. Per patient symptoms about the same, no real improvement, getting echo now. Continue q1 hour neuro checks 3. Needs repeat Head CT vs MRI 4. Per patient was on daily plavix and did not miss any doses 5. Follow up echo 6. Weight loss and dietary changes. Guarded prognosis. Subjective Date of service: 11/23/21 Interval history: No acute events. Stable for transfer to floor. Objective - Constitutional Vitals: Vital Signs - 12hr 11/22/21 11/22/21 11/22/21 22:45 23:00 23:15 Temperature Pulse Rate 85 94 H 89 Pulse Rate [ From Monitor] Pulse Rate [ Throughout] Respiratory 25 H 28 H 25 H Rate Respiratory Rate [ Throughout] Blood Pressure 173/98 169/115 171/102 O2 Sat by Pulse 96 95 93 Oximetry 11/22/21 11/22/21 11/23/21 23:30 23:45 00:00 Temperature 98.6 F Pulse Rate 87 83 91 H Pulse Rate [ 92 H From Monitor] Pulse Rate [ Throughout] Respiratory 26 H 21 20 Rate Respiratory Rate [ Throughout] Blood Pressure 155/82 168/83 155/82 O2 Sat by Pulse 95 95 96 Oximetry 11/23/21 11/23/21 11/23/21 00:02 00:16 00:30 Temperature Pulse Rate 94 H 87 97 H Pulse Rate [ From Monitor] Pulse Rate [ Throughout] Respiratory 13 25 H 25 H Rate Respiratory Rate [ Throughout] Blood Pressure 155/82 169/99 169/99 O2 Sat by Pulse 95 95 96 Oximetry 11/23/21 11/23/21 11/23/21 00:45 01:00 01:15 Temperature Pulse Rate 82 86 85 Pulse Rate [ From Monitor] Pulse Rate [ Throughout] Respiratory 21 22 23 Rate Respiratory Rate [ Throughout] Blood Pressure 174/97 179/103 176/106 O2 Sat by Pulse 97 95 96 Oximetry 11/23/21 11/23/21 11/23/21 01:30 01:45 02:00 Temperature Pulse Rate 84 84 86 Pulse Rate [ From Monitor] Pulse Rate [ Throughout] Respiratory 19 24 20 Rate Respiratory Rate [ Throughout] Blood Pressure 155/100 166/100 166/100 O2 Sat by Pulse 97 95 95 Oximetry 11/23/21 11/23/21 11/23/21 02:16 02:30 02:46 Temperature Pulse Rate 96 H 78 82 Pulse Rate [ From Monitor] Pulse Rate [ Throughout] Respiratory 24 24 24 Rate Respiratory Rate [ Throughout] Blood Pressure 189/107 156/84 151/85 O2 Sat by Pulse 97 93 95 Oximetry 11/23/21 11/23/21 11/23/21 02:51 03:00 03:16 Temperature Pulse Rate 85 97 H Pulse Rate [ From Monitor] Pulse Rate [ 88 Throughout] Respiratory 19 22 Rate Respiratory 18 Rate [ Throughout] Blood Pressure 151/85 151/85 O2 Sat by Pulse 97 96 Oximetry 11/23/21 11/23/21 11/23/21 03:30 03:46 03:55 Temperature 99.5 F Pulse Rate 82 84 Pulse Rate [ From Monitor] Pulse Rate [ Throughout] Respiratory 31 H 16 Rate Respiratory Rate [ Throughout] Blood Pressure 185/83 160/91 O2 Sat by Pulse 92 97 Oximetry 11/23/21 11/23/21 11/23/21 04:00 04:16 04:30 Temperature Pulse Rate 85 92 H 94 H Pulse Rate [ 102 H From Monitor] Pulse Rate [ Throughout] Respiratory 23 18 29 H Rate Respiratory Rate [ Throughout] Blood Pressure 160/91 176/105 176/105 O2 Sat by Pulse 94 97 95 Oximetry 11/23/21 11/23/21 11/23/21 04:45 05:00 05:16 Temperature Pulse Rate 83 87 85 Pulse Rate [ From Monitor] Pulse Rate [ Throughout] Respiratory 23 19 28 H Rate Respiratory Rate [ Throughout] Blood Pressure 174/101 188/110 166/98 O2 Sat by Pulse 95 95 91 Oximetry 11/23/21 11/23/21 11/23/21 06:00 07:00 07:12 Temperature 99.0 F Pulse Rate 85 82 Pulse Rate [ From Monitor] Pulse Rate [ Throughout] Respiratory 21 18 Rate Respiratory Rate [ Throughout] Blood Pressure 166/98 167/92 O2 Sat by Pulse 95 94 Oximetry 11/23/21 11/23/21 11/23/21 08:00 09:00 10:12 Temperature Pulse Rate 83 89 89 Pulse Rate [ 84 From Monitor] Pulse Rate [ Throughout] Respiratory 16 22 Rate Respiratory Rate [ Throughout] Blood Pressure 167/92 161/101 151/100 O2 Sat by Pulse 97 93 Oximetry - Labs CBC & Chem 7: 11/23/21 04:00 11/23/21 04:00 Labs: Abnormal lab results 11/22/21 11/22/21 11/22/21 Range/Units 10:00 10:00 10:00 WBC 12.7 H (4.5-11.0) K/mm3 RBC 5.15 H (3.65-5.03) M/mm3 Hgb 15.4 H (11.8-15.2) gm/dl Hct 46.0 H (35.5-45.6) % Sodium 135 L (137-145) mmol/L Creatinine 0.6 L (0.8-1.3) mg/dL Glucose 160 H (75-100) mg/dL POC Glucose (70-105) mg/dL Hemoglobin A1c 8.4 H (4-6) % 11/22/21 11/22/21 11/22/21 Range/Units 13:11 16:45 21:42 WBC (4.5-11.0) K/mm3 RBC (3.65-5.03) M/mm3 Hgb (11.8-15.2) gm/dl Hct (35.5-45.6) % Sodium (137-145) mmol/L Creatinine (0.8-1.3) mg/dL Glucose (75-100) mg/dL POC Glucose 225 H 219 H 185 H (70-105) mg/dL Hemoglobin A1c (4-6) % 11/23/21 11/23/21 Range/Units 04:00 04:00 WBC 12.2 H (4.5-11.0) K/mm3 RBC (3.65-5.03) M/mm3 Hgb (11.8-15.2) gm/dl Hct (35.5-45.6) % Sodium (137-145) mmol/L Creatinine (0.8-1.3) mg/dL Glucose 158 H (75-100) mg/dL POC Glucose (70-105) mg/dL Hemoglobin A1c (4-6) % Medications & Allergies - Medications Allergies/Adverse Reactions: Allergies aspirin Allergy (Verified 11/21/21 22:14) Hives Active Medications: Generic Name Dose Route Start Last Admin Trade Name Freq PRN Reason Stop Dose Admin Acetaminophen 650 mg 11/21/21 23:12 Acetaminophen 325 Mg Tab PO Q4H PRN Pain MILD(1-3)/Fever >100.5/BANUELOS Atorvastatin Calcium 80 mg 11/23/21 22:00 Atorvastatin 40 Mg Tab PO QHS [facility] Citalopram Hydrobromide 20 mg 11/23/21 10:00 11/23/21 10:12 Citalopram 20 Mg Tab PO Not Given QDAY [facility] Clopidogrel Bisulfate 75 mg 11/23/21 10:00 11/23/21 10:12 Clopidogrel 75 Mg Tab PO 75 mg QDAY SHARON Administration Dextrose 50 ml 11/21/21 23:12 Dextrose 50% In Water (25gm) 50 Ml Syringe IV Q30MIN PRN Hypoglycemia Protocol Docusate Sodium 100 mg 11/22/21 22:00 11/23/21 10:12 Docusate Sodium 100 Mg Cap PO 100 mg BID SHARON Administration Famotidine 20 mg 11/23/21 10:00 11/23/21 10:12 Famotidine 20 Mg Tab PO 20 mg QDAY SHARON Administration Insulin Human Lispro 0 unit 11/22/21 16:30 11/23/21 08:26 Insulin Lispro 100 Unit/Ml SUB-Q 2 unit ACHS SHARON Administration Protocol Labetalol HCl 10 mg 11/22/21 13:41 11/22/21 19:14 Labetalol 20 Mg/4 Ml Inj IV 10 mg Q4HR PRN Administration hypertension Lisinopril 20 mg 11/23/21 15:00 Lisinopril 20 Mg Tab PO QDAY SHARON Metoprolol Tartrate 50 mg 11/23/21 10:00 11/23/21 10:12 Metoprolol Tartrate 50 Mg Tab PO 50 mg BID SHARON Administration Ondansetron HCl 4 mg 11/21/21 23:12 11/22/21 19:15 Ondansetron 4 Mg/2 Ml Inj IV 4 mg Q8H PRN Administration Nausea And Vomiting Sodium Chloride 10 ml 11/22/21 10:00 11/23/21 10:13 Sodium Chloride 0.9% 10 Ml Flush Syringe IV 10 ml BID SHARON Administration Sodium Chloride 10 ml 11/21/21 23:12 Sodium Chloride 0.9% 10 Ml Flush Syringe IV PRN PRN LINE FLUSH HEART Score - HEART Score Troponin: Troponin T < 0.010 ng/mL (0.00-0.029) 11/21/21 21:25
--- NOTE | 2021-11-23 12:09 | Progress Note ---
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, decreased peripheral vision and stutter), HTN, MS (2019), HLD, and gout admitted with CVA Neuro: CVA, h/o CVA (2020) with residual left-sided weakness, decreased peripheral vision and stutter -Neurology consulted, appreciate recommendations -Per documentation family noted left-sided weakness -LKW 8 PM 11/21 -Initial NIHSS 7 -S/p tPA -Initial CT head shows no evidence of acute intracranial abnormality, chronic ischemic changes -CTA neck no indication of hemodynamic significant stenosis of the carotid bifurcations or elsewhere -CTA head shows calcified atherosclerotic plaque observed along the cavernous segments of both internal carotid arteries, stenosis in the order of 70% severity in the right cavernous sinus IAC, otherwise no indication of hemodynamically significant intracranial stenosis, no indication of large vessel occlusion -MRI brain pending -[address] head at 2200 11/22 showed no evidence of intracranial abnormality, no interval change, multifocal regions of remote cortical infarct and remote small deep infarctions noted -LVEF 35 to 40% negative contrast bubble study -Per teleneurology blood pressure goal of less than 180/105 for 24 hours post tPA -labetalol as needed -Patient's home medication includes donepezil, lisinopril, metoprolol, amlodipine, citalopram, Plavix and Lipitor -Lipid panel noted -Neuro checks per protocol -Patient has allergy to aspirin -Lipitor increased to 80 mg HS as patient was taking this before and given lipid panel -Reorientation as needed -Maintain sleep-wake cycle -As needed analgesia -PT/OT/ST consulted -Resume home Celexa Cardiac: Hypertensive emergency, h/o HTN, MS (2019), HLD -Presented with 219/119 -given labatalol, cardent gtt not started -Cardiology consulted, appreciate recommendations -ED concerned about pericarditis from ECG from admit -Blood pressure monitoring per protocol -prn labatalol -LVEF 35 to 40% negative contrast bubble study -Home meds include amlodipine, lisinopril, metoprolol, and Lipitor -Admit probnp 474 -Lasix x1 Respiratory: Acute hypoxic respiratory failure -Patient was on nasal cannula weaned to room air -Supplemental oxygen as needed -SPO2 monitor per protocol -Pulmonary hygiene GI: Obesity -Passed bedside swallow evaluation -CC cardiac diet -PPI -BR: Colace -Encourage weight loss and dietary changes outpatient : NAD -Monitor intake and output -Renally dose medications -Avoid nephrotoxic medications -Trend BMP ID: SIRS, POA, lactic acidosis (resolved) -Presented with leukocytosis, lactic acidosis, CXR with volume overload/CHF with interstitial edema -Lactic acid 2.6 on admit, now 1.3 -Monitor WBC and temperature curve Endo: DM -Hemoglobin A1C 8.4 -SSI -Accu-Cheks ACHS -Avoid hypoglycemia Heme: Leukocytosis -Trend CBC -Transfuse hemoglobin less than 7 -SCDs to BLE while in bed The high probability of a clinically significant, sudden or life threatening deterioration of the [neuro] system(s) required my full and direct attention, intervention and personal management. The aggregate critical care time was [60] minutes. This time is in addition to time spent performing reported procedures but includes the following: [x] Data Review and interpretation [x] Patient assessment and monitoring of vital signs [x] Documentation [x] Medication orders and management Disposition Plan: transfer to floor Total Time Spent with Patient (Minutes): 60 History Interval history: This is a 51-year-old male with CVA in 2020 with residual right-sided weakness for which he uses a wheelchair for mobility, decreased peripheral vision and stutter, hypertension, MS in 2019, gout, hyperlipidemia presented to the emergency department 11/21 via EMS for possible strokelike symptoms. In the emergency department she was evaluated by teleneurology with initial NIHSS of 7 and deemed he was a candidate for tPA. In the emergency department patient's ECG was also concerning for pericarditis to the ED physician. Patient was hypertensive in the ED and was started on a Cardene drip. Patient was admitted to the hospital service with consults to [facility], cardiology and neurology. Hospital course to date: 11/22: Patient hypertensive, as needed labetalol ordered. Home medications include amlodipine, citalpram, Plavix, donepezil, lisinopril, metoprolol and Lipitor. Passed swallow eval. Started on CC cardiac diet. ECG reviewed, no diffuse ST elevation noted. Per emergency medical technician basic, patient does have a small pericardial effusion. 11/23: Started on aspirin 81 mg as patient takes 81 mg at home. Transfer patient to floor Hospitalist Physical - Constitutional Vitals: Temp Pulse Resp BP Pulse Ox 99.4 F 87 14 151/100 98 11/23/21 11:42 11/23/21 11:00 11/23/21 11:00 11/23/21 11:00 11/23/21 11:00 General appearance: Present: other (Patient appears stuporous, but breathing comfortably on facemask oxygen.) - EENT Eyes: Present: PERRL. Absent: EOM intact (reduced peripheral vision at baseline from previous CVA) - Neck Neck: Present: normal ROM - Respiratory Respiratory effort: normal - Cardiovascular Rhythm: regular Heart Sounds: Present: S1 & S2. Absent: systolic murmur, diastolic murmur - Extremities Extremities: no ischemia, pulses intact, pulses symmetrical, Full ROM Extremity abnormal: edema Peripheral Pulses: within normal limits - Abdominal General gastrointestinal: soft, non-tender, non-distended, normal bowel sounds - Integumentary Integumentary: Present: warm, dry - Psychiatric Psychiatric: cooperative - Neurologic Neurologic: focal deficits (weakness to Right upper and lower extremites 3/5, drift noted to right UE) - Allied Health Allied health notes reviewed: nursing, social work HEART Score - HEART Score Troponin: Troponin T < 0.010 ng/mL (0.00-0.029) 11/21/21 21:25 Results - Labs CBC & Chem 7: 11/23/21 04:00 11/23/21 04:00 Labs: Laboratory Last Values WBC 12.2 K/mm3 (4.5-11.0) H 11/23/21 04:00 RBC 4.90 M/mm3 (3.65-5.03) 11/23/21 04:00 Hgb 14.4 gm/dl (11.8-15.2) 11/23/21 04:00 Hct 43.8 % (35.5-45.6) 11/23/21 04:00 MCV 89 fl (84-94) 11/23/21 04:00 MCH 29 pg (28-32) 11/23/21 04:00 MCHC 33 % (32-34) 11/23/21 04:00 RDW 14.8 % (13.2-15.2) 11/23/21 04:00 Plt Count 264 K/mm3 (140-440) 11/23/21 04:00 PT 13.3 Sec. (12.2-14.9) 11/21/21 21:25 INR 0.92 (0.87-1.13) 11/21/21 21:25 APTT 25.2 Sec. (24.2-36.6) 11/21/21 21:25 Sodium 140 mmol/L (137-145) 11/23/21 04:00 Potassium 3.9 mmol/L (3.6-5.0) 11/23/21 04:00 Chloride 103.4 mmol/L (98-107) 11/23/21 04:00 Carbon Dioxide 24 mmol/L (22-30) 11/23/21 04:00 Anion Gap 17 mmol/L 11/23/21 04:00 BUN 15 mg/dL (9-20) 11/23/21 04:00 Creatinine 0.8 mg/dL (0.8-1.3) 11/23/21 04:00 Estimated GFR > 60 ml/min 11/23/21 04:00 BUN/Creatinine Ratio 19 % 11/23/21 04:00 Glucose 158 mg/dL (75-100) H 11/23/21 04:00 POC Glucose 185 mg/dL (70-105) H 11/22/21 21:42 Hemoglobin A1c 8.4 % (4-6) H 11/22/21 10:00 Lactic Acid 1.30 mmol/L (0.7-2.0) 11/22/21 00:15 Calcium 9.5 mg/dL (8.4-10.2) 11/23/21 04:00 Magnesium 1.90 mg/dL (1.7-2.3) 11/21/21 21:25 Total Bilirubin 0.50 mg/dL (0.1-1.2) 11/21/21 21:25 AST 16 units/L (5-40) 11/21/21 21:25 ALT 12 units/L (7-56) 11/21/21 21:25 Alkaline Phosphatase 81 units/L (35-129) 11/21/21 21:25 Total Creatine Kinase 141 units/L (55-170) 11/21/21 22:01 Troponin T < 0.010 ng/mL (0.00-0.029) 11/21/21 21:25 NT-Pro-B Natriuret Pep 474.9 pg/mL (0-450) H 11/21/21 21:25 Total Protein 7.4 g/dL (6.3-8.2) 11/21/21 21:25 Albumin 4.3 g/dL (3.9-5) 11/21/21 21:25 Albumin/Globulin Ratio 1.4 % 11/21/21 21:25 Triglycerides 156 mg/dL (2-149) H 11/21/21 21:25 Cholesterol 234 mg/dL (50-199) H 11/21/21 21:25 LDL Cholesterol Direct 168 mg/dL (50-130) H 11/21/21 21:25 HDL Cholesterol 32 mg/dL (40-59) L 11/21/21 21:25 Cholesterol/HDL Ratio 7.31 % 11/21/21 21:25 Urine Color Straw (Yellow) 11/21/21 11:55 Urine Turbidity Clear (Clear) 11/21/21 11:55 Specific Dexter (Man) 1.005 (1.003-1.030) 11/21/21 11:55 Ur Protein (Man) 1+ mg/dL (Negative) 11/21/21 11:55 Ur Ketones (Man) Negative (Negative) 11/21/21 11:55 Ur Nitrite (Man) Negative (Negative) 11/21/21 11:55 Ur Reducing Substances Not Reportable 11/21/21 11:55 Urine Bilirubin (Man) Negative (Negative) 11/21/21 11:55 Urine Ictotest Not Reportable 11/21/21 11:55 Leukocyte Esterase (Man) Negative (Negative) 11/21/21 11:55 Urine WBC (Auto) 3.0 /HPF (0.0-6.0) 11/21/21 11:55 Urine RBC (Auto) 2.0 /HPF (0.0-6.0) 11/21/21 11:55 U Epithel Cells (Auto) 1.0 /HPF (0-13.0) 11/21/21 11:55 Urine RBC (Manual) 4+ (Negative) 11/21/21 11:55 Urine Mucus Few /HPF 11/21/21 11:55 Plasma/Serum Alcohol < 0.01 % (0-0.07) 11/21/21 22:01 Matta/IV: Voiding Method Condom Catheter Active Medications - Current Medications Current Medications: Generic Name Dose Route Start Last Admin Trade Name Freq PRN Reason Stop Dose Admin Acetaminophen 650 mg 11/21/21 23:12 Acetaminophen 325 Mg Tab PO Q4H PRN Pain MILD(1-3)/Fever >100.5/BANUELOS Aspirin 81 mg 11/23/21 12:00 Aspirin 81 Mg Tab Chew PO QDAY [facility] Atorvastatin Calcium 80 mg 11/23/21 22:00 Atorvastatin 40 Mg Tab PO QHS [facility] Citalopram Hydrobromide 20 mg 11/23/21 10:00 11/23/21 11:54 Citalopram 20 Mg Tab PO 20 mg QDAY [facility] Administration Clopidogrel Bisulfate 75 mg 11/23/21 10:00 11/23/21 10:12 Clopidogrel 75 Mg Tab PO 75 mg QDAY [facility] Administration Dextrose 50 ml 11/21/21 23:12 Dextrose 50% In Water (25gm) 50 Ml Syringe IV Q30MIN PRN Hypoglycemia Protocol Docusate Sodium 100 mg 11/22/21 22:00 11/23/21 10:12 Docusate Sodium 100 Mg Cap PO 100 mg BID SHARON Administration Famotidine 20 mg 11/23/21 10:00 11/23/21 10:12 Famotidine 20 Mg Tab PO 20 mg QDAY [facility] Administration Insulin Human Lispro 0 unit 11/22/21 16:30 11/23/21 11:54 Insulin Lispro 100 Unit/Ml SUB-Q Not Given ACHS [facility] Protocol Labetalol HCl 10 mg 11/22/21 13:41 11/22/21 19:14 Labetalol 20 Mg/4 Ml Inj IV 10 mg Q4HR PRN Administration hypertension Lisinopril 20 mg 11/23/21 15:00 Lisinopril 20 Mg Tab PO QDAY [facility] Metoprolol Tartrate 50 mg 11/23/21 10:00 11/23/21 10:12 Metoprolol Tartrate 50 Mg Tab PO 50 mg BID SHARON Administration Ondansetron HCl 4 mg 11/21/21 23:12 11/22/21 19:15 Ondansetron 4 Mg/2 Ml Inj IV 4 mg Q8H PRN Administration Nausea And Vomiting Sodium Chloride 10 ml 11/22/21 10:00 11/23/21 10:13 Sodium Chloride 0.9% 10 Ml Flush Syringe IV 10 ml BID SHARON Administration Sodium Chloride 10 ml 11/21/21 23:12 Sodium Chloride 0.9% 10 Ml Flush Syringe IV PRN PRN LINE FLUSH Nutrition/Malnutrition Assess - Dietary Evaluation Nutrition/Malnutrition Findings: Nutrition Notes Start: 11/22/21 12:56 Freq: Status: Active Protocol: Document 11/22/21 12:56 TW (Rec: 11/22/21 13:02 TW [id number]) Nutrition Notes Need for Assessment generated from: MD Order,Education Initial or Follow up Brief Note Current Diagnosis Diabetes,Hypertension, Hyperlipidemia Other Pertinent Diagnosis CVA, lactic acidosis Current Diet Cardiac Labs/Tests Glucose 160 A1c 8.4 Pertinent Medications Reviewed Height 6 ft Weight 121.109 kg [place] Body Weight (kg) 80.90 BMI 36.2 Weight Status Obese Subjective/Other Information RD consulted for diet education. Pt has slurred speech and stroke like symptoms. Went to speak with pt, nurses were assisting him. Burn Absent Trauma Absent Minimum of two criteria No Nutrition Intervention Follow-Up By: 11/23/21 Additional Comments F/U for diet education
[2021-11-23] MEDS: ASPIRIN 81 MG TAB CHEW PO SCH (13:04)
--- NOTE | 2021-11-23 14:12 | Progress Note ---
Assessment and Plan - Patient Problems (1) LV dysfunction Current Visit: Yes Status: Acute Plan to address problem: Patient new diagnosis of LV systolic dysfunction. Does not appear to to be in acute heart failure. Continued guideline directed medical therapy. He will need an ischemic work-up as outpatient. We will follow-up in the clinic. (2) Abnormal ECG Current Visit: Yes Status: Acute Plan to address problem: No evidence of pericarditis. Subjective Principal diagnosis: Abnormal EKG, LV dysfunction Interval history: Patient doing well. No chest pain shortness of breath orthopnea PND. Objective Vital Signs Temp Pulse Pulse Pulse Resp Resp BP 11/23/21 13:00 84 18 162/96 11/23/21 12:30 80 23 185/110 11/23/21 12:00 90 79 16 175/111 11/23/21 11:42 99.4 F 11/23/21 11:30 87 17 151/100 11/23/21 11:00 87 14 151/100 11/23/21 10:12 89 151/100 11/23/21 10:00 81 151/100 11/23/21 09:00 89 22 161/101 11/23/21 08:00 83 84 16 167/92 11/23/21 07:12 99.0 F 11/23/21 07:00 82 18 167/92 11/23/21 06:00 85 21 166/98 11/23/21 05:16 85 28 H 166/98 11/23/21 05:00 87 19 188/110 11/23/21 04:45 83 23 174/101 11/23/21 04:30 94 H 29 H 176/105 11/23/21 04:16 92 H 18 176/105 11/23/21 04:00 85 102 H 23 160/91 11/23/21 03:55 99.5 F 11/23/21 03:46 84 16 160/91 11/23/21 03:30 82 31 H 185/83 11/23/21 03:16 97 H 22 151/85 11/23/21 03:00 85 19 151/85 11/23/21 02:51 88 18 11/23/21 02:46 82 24 151/85 11/23/21 02:30 78 24 156/84 11/23/21 02:16 96 H 24 189/107 11/23/21 02:00 86 20 166/100 11/23/21 01:45 84 24 166/100 11/23/21 01:30 84 19 155/100 11/23/21 01:15 85 23 176/106 11/23/21 01:00 86 22 179/103 11/23/21 00:45 82 21 174/97 11/23/21 00:30 97 H 25 H 169/99 11/23/21 00:16 87 25 H 169/99 11/23/21 00:02 94 H 13 155/82 11/23/21 00:00 98.6 F 91 H 92 H 20 155/82 11/22/21 23:45 83 21 168/83 11/22/21 23:30 87 26 H 155/82 11/22/21 23:15 89 25 H 171/102 11/22/21 23:00 94 H 28 H 169/115 11/22/21 22:45 85 25 H 173/98 11/22/21 22:30 93 H 19 173/116 11/22/21 22:16 168/91 11/22/21 22:14 168/91 11/22/21 21:46 89 26 H 167/100 11/22/21 21:30 87 22 168/94 11/22/21 21:15 88 21 167/96 11/22/21 21:00 88 21 173/104 11/22/21 20:45 89 29 H 170/98 11/22/21 20:30 90 24 163/91 11/22/21 20:21 11/22/21 20:19 90 21 11/22/21 20:15 88 14 160/98 11/22/21 20:00 89 19 163/92 11/22/21 19:49 98.5 F 11/22/21 19:45 88 23 174/97 11/22/21 19:40 88 88 21 11/22/21 19:30 88 19 182/107 11/22/21 19:15 90 25 H 177/105 11/22/21 19:14 89 188/103 11/22/21 19:00 92 H 19 188/103 11/22/21 18:45 91 H 28 H 186/99 11/22/21 18:30 90 23 164/104 11/22/21 18:15 89 24 167/101 11/22/21 18:00 93 H 19 162/107 11/22/21 17:45 96 H 14 173/103 11/22/21 17:30 88 24 167/100 11/22/21 17:15 87 20 162/96 11/22/21 17:00 91 H 24 159/96 11/22/21 16:45 89 25 H 175/105 11/22/21 16:30 88 21 173/106 11/22/21 16:15 87 23 166/106 11/22/21 16:00 90 90 22 164/109 11/22/21 15:57 98.9 F 11/22/21 15:46 88 25 H 173/101 11/22/21 15:30 88 30 H 167/91 11/22/21 15:15 87 25 H 149/98 11/22/21 15:00 88 21 161/103 11/22/21 14:46 86 29 H 159/95 11/22/21 14:34 93 H 17 11/22/21 14:30 82 28 H 160/100 11/22/21 14:16 85 23 170/142 Pulse Ox 11/23/21 13:00 96 11/23/21 12:30 96 11/23/21 12:00 97 11/23/21 11:42 11/23/21 11:30 96 11/23/21 11:00 98 11/23/21 10:12 11/23/21 10:00 96 11/23/21 09:00 93 11/23/21 08:00 97 11/23/21 07:12 11/23/21 07:00 94 11/23/21 06:00 95 11/23/21 05:16 91 11/23/21 05:00 95 11/23/21 04:45 95 11/23/21 04:30 95 11/23/21 04:16 97 11/23/21 04:00 94 11/23/21 03:55 11/23/21 03:46 97 11/23/21 03:30 92 11/23/21 03:16 96 11/23/21 03:00 97 11/23/21 02:51 11/23/21 02:46 95 11/23/21 02:30 93 11/23/21 02:16 97 11/23/21 02:00 95 11/23/21 01:45 95 11/23/21 01:30 97 11/23/21 01:15 96 11/23/21 01:00 95 11/23/21 00:45 97 11/23/21 00:30 96 11/23/21 00:16 95 11/23/21 00:02 95 11/23/21 00:00 96 11/22/21 23:45 95 11/22/21 23:30 95 11/22/21 23:15 93 11/22/21 23:00 95 11/22/21 22:45 96 11/22/21 22:30 95 11/22/21 22:16 97 11/22/21 22:14 96 11/22/21 21:46 94 11/22/21 21:30 92 11/22/21 21:15 95 11/22/21 21:00 92 11/22/21 20:45 93 11/22/21 20:30 94 11/22/21 20:21 95 11/22/21 20:19 11/22/21 20:15 95 11/22/21 20:00 95 11/22/21 19:49 11/22/21 19:45 94 11/22/21 19:40 96 11/22/21 19:30 96 11/22/21 19:15 95 11/22/21 19:14 11/22/21 19:00 95 11/22/21 18:45 95 11/22/21 18:30 94 11/22/21 18:15 95 11/22/21 18:00 94 11/22/21 17:45 95 11/22/21 17:30 96 11/22/21 17:15 96 11/22/21 17:00 94 11/22/21 16:45 93 11/22/21 16:30 93 11/22/21 16:15 94 11/22/21 16:00 94 11/22/21 15:57 11/22/21 15:46 95 11/22/21 15:30 93 11/22/21 15:15 93 11/22/21 15:00 95 11/22/21 14:46 96 11/22/21 14:34 11/22/21 14:30 97 11/22/21 14:16 95 - Physical Examination HEENT: Positive: PERRL Neck: Positive: neck supple Cardiac: Positive: Reg Rate and Rhythm, S1/S2 Lungs: Positive: clear to auscultation Neuro: Positive: Grossly Intact, Weakness (Generalized lethargy) Abdomen: Positive: Soft Skin: Positive: Clear Extremities: Absent: edema - Labs and Meds CBC 11/23/21 Range/Units 04:00 WBC 12.2 H (4.5-11.0) K/mm3 RBC 4.90 (3.65-5.03) M/mm3 Hgb 14.4 (11.8-15.2) gm/dl Hct 43.8 (35.5-45.6) % Plt Count 264 (140-440) K/mm3 Comprehensive Metabolic Panel 11/23/21 Range/Units 04:00 Sodium 140 (137-145) mmol/L Potassium 3.9 (3.6-5.0) mmol/L Chloride 103.4 (98-107) mmol/L Carbon Dioxide 24 (22-30) mmol/L BUN 15 (9-20) mg/dL Creatinine 0.8 (0.8-1.3) mg/dL Glucose 158 H (75-100) mg/dL Calcium 9.5 (8.4-10.2) mg/dL
--- NOTE | 2021-11-23 15:07 | Consultation ---
History of Present Illness Consult date: 11/23/21 Reason for Consult: CVA History of present illness: Evaluated status post CVA . Patient recieved TPA, continue to have weakness Right > Left . Patient has worsening in dysarthria . Past History Past Medical History: diabetes, hypertension, stroke Past Surgical History: No surgical history Social history: no significant social history Family history: hypertension Medications and Allergies Allergies Allergy/AdvReac Type Severity Reaction Status Date / Time No Known Allergies Allergy Verified 11/23/21 12:08 Home Medications Medication Instructions Recorded Confirmed Last Taken Type Aspirin [Adult Aspirin] 81 mg PO QDAY 11/23/21 11/23/21 Unknown History AtorvaSTATin [Lipitor] 2 tab PO DAILY 11/23/21 11/23/21 Unknown History Citalopram [celeXA] 20 mg PO QDAY 11/23/21 11/23/21 Unknown History Glimepiride [Amaryl] 4 mg PO QAM 11/23/21 11/23/21 Unknown History Metformin HCl [metFORMIN] 1 tab PO BID 11/23/21 11/23/21 Unknown History Metoprolol [Lopressor TAB] 50 mg PO BID 11/23/21 11/23/21 Unknown History allopurinoL 1 tab PO DAILY 11/23/21 11/23/21 Unknown History allopurinoL [Zyloprim] 100 mg PO QDAY 11/23/21 11/23/21 Unknown History amLODIPine [Norvasc] 10 mg PO DAILY 11/23/21 11/23/21 Unknown History donepeziL [Aricept] 5 mg PO QHS 11/23/21 11/23/21 Unknown History lisinopriL [Zestril TAB] 40 mg PO QDAY 11/23/21 11/23/21 Unknown History Active Meds: Active Medications Acetaminophen (Acetaminophen 325 Mg Tab) 650 mg PO Q4H PRN PRN Reason: Pain MILD(1-3)/Fever >100.5/BANUELOS Aspirin (Aspirin 81 Mg Tab Chew) 81 mg PO QDAY [facility] Last Admin: 11/23/21 13:04 Dose: 81 mg Atorvastatin Calcium (Atorvastatin 40 Mg Tab) 80 mg PO QHS [facility] Citalopram Hydrobromide (Citalopram 20 Mg Tab) 20 mg PO QDAY [facility] Last Admin: 11/23/21 11:54 Dose: 20 mg Clopidogrel Bisulfate (Clopidogrel 75 Mg Tab) 75 mg PO QDAY [facility] Last Admin: 11/23/21 10:12 Dose: 75 mg Dextrose (Dextrose 50% In Water (25gm) 50 Ml Syringe) 50 ml IV Q30MIN PRN; Protocol PRN Reason: Hypoglycemia Docusate Sodium (Docusate Sodium 100 Mg Cap) 100 mg PO BID [facility] Last Admin: 11/23/21 10:12 Dose: 100 mg Famotidine (Famotidine 20 Mg Tab) 20 mg PO QDAY [facility] Last Admin: 11/23/21 10:12 Dose: 20 mg Insulin Human Lispro (Insulin Lispro 100 Unit/Ml) 0 unit SUB-Q ACHS [facility]; Protocol Last Admin: 11/23/21 11:54 Dose: Not Given Labetalol HCl (Labetalol 20 Mg/4 Ml Inj) 10 mg IV Q4HR PRN PRN Reason: hypertension Last Admin: 11/22/21 19:14 Dose: 10 mg Lisinopril (Lisinopril 20 Mg Tab) 20 mg PO QDAY [facility] Metoprolol Tartrate (Metoprolol Tartrate 50 Mg Tab) 50 mg PO BID [facility] Ondansetron HCl (Ondansetron 4 Mg/2 Ml Inj) 4 mg IV Q8H PRN PRN Reason: Nausea And Vomiting Last Admin: 11/22/21 19:15 Dose: 4 mg Sodium Chloride (Sodium Chloride 0.9% 10 Ml Flush Syringe) 10 ml IV BID [facility] Last Admin: 11/23/21 10:13 Dose: 10 ml Sodium Chloride (Sodium Chloride 0.9% 10 Ml Flush Syringe) 10 ml IV PRN PRN PRN Reason: LINE FLUSH Physical Examination - Vital Signs Vital Signs: Vital Signs Temp Pulse Resp BP Pulse Ox 98 F 101 H 18 219/119 98 11/21/21 20:55 11/21/21 20:55 11/21/21 20:55 11/21/21 20:55 11/21/21 20:55 - Physical Exam Narrative exam: The patient is alert, the patient has expressive aphasia , the patient has right upper and lower extremity weakness The strength in the upper and lower extremity - 3+/5 Results - Laboratory Findings CBC and BMP: 11/23/21 04:00 11/23/21 04:00 Abnormal Lab Findings: Abnormal Labs 11/21/21 11/21/21 11/21/21 21:25 21:25 21:25 WBC 12.1 H RBC 5.24 H Hgb 15.4 H Hct 47.5 H Sodium Carbon Dioxide 19 L Creatinine Glucose 264 H POC Glucose Hemoglobin A1c Lactic Acid NT-Pro-B Natriuret Pep 474.9 H Triglycerides 156 H Cholesterol 234 H LDL Cholesterol Direct 168 H HDL Cholesterol 32 L 11/21/21 11/22/21 11/22/21 22:01 06:38 10:00 WBC 12.7 H RBC 5.15 H Hgb 15.4 H Hct 46.0 H Sodium Carbon Dioxide Creatinine Glucose POC Glucose 188 H Hemoglobin A1c Lactic Acid 2.60 H* NT-Pro-B Natriuret Pep Triglycerides Cholesterol LDL Cholesterol Direct HDL Cholesterol 11/22/21 11/22/21 11/22/21 10:00 10:00 13:11 WBC RBC Hgb Hct Sodium 135 L Carbon Dioxide Creatinine 0.6 L Glucose 160 H POC Glucose 225 H Hemoglobin A1c 8.4 H Lactic Acid NT-Pro-B Natriuret Pep Triglycerides Cholesterol LDL Cholesterol Direct HDL Cholesterol 11/22/21 11/22/21 11/23/21 16:45 21:42 04:00 WBC 12.2 H RBC Hgb Hct Sodium Carbon Dioxide Creatinine Glucose POC Glucose 219 H 185 H Hemoglobin A1c Lactic Acid NT-Pro-B Natriuret Pep Triglycerides Cholesterol LDL Cholesterol Direct HDL Cholesterol 11/23/21 04:00 WBC RBC Hgb Hct Sodium Carbon Dioxide Creatinine Glucose 158 H POC Glucose Hemoglobin A1c Lactic Acid NT-Pro-B Natriuret Pep Triglycerides Cholesterol LDL Cholesterol Direct HDL Cholesterol Assessment and Plan 1. CVA- recurrant ( needs further evaluation ). 2. MRI Brain and MRA Carotids no contrast . 3. Risk factors for CVA discussed . 4. Needs a Inpatient Vascular Surgery evaluation . 5. Out Patient Neurology follow up . 6. PT / Speech and OT Call Back with Questions Dr. Rooney
[2021-11-23] MEDS: LISINOPRIL 20 MG TAB PO SCH (16:13)
[2021-11-24 08:50] LABS: Hematocrit 44.1 % (35.5-45.6); Hemoglobin 14.5 gm/dl (11.8-15.2); Mean Corpuscular HGB Conc 33 % (32-34); Mean Corpuscular Volume 90 fl (84-94); Platelet Count 269 K/mm3 (140-440); Red Blood Count 4.89 M/mm3 (3.65-5.03); Red Cell Distribution Width 15.1 % (13.2-15.2)
[2021-11-24] MEDS: INSULIN LISPRO 100 UNIT/ML SUB-Q SCH ×3 (09:00→17:00)
[2021-11-24] MEDS: CITALOPRAM 20 MG TAB PO SCH (12:04)
[2021-11-24] MEDS: FAMOTIDINE 20 MG TAB PO SCH (12:04)
[2021-11-24] MEDS: CLOPIDOGREL 75 MG TAB PO SCH (12:05)
[2021-11-24] MEDS: LISINOPRIL 20 MG TAB PO SCH (12:05)
[2021-11-24] MEDS: ASPIRIN 81 MG TAB CHEW PO SCH (12:07)
[2021-11-24] MEDS: DOCUSATE SODIUM 100 MG CAP PO SCH ×2 (12:07→22:06)
--- NOTE | 2021-11-24 12:25 | Progress Note ---
Assessment and Plan - Patient Problems (1) Abnormal ECG Current Visit: Yes Status: Acute Plan to address problem: 51-year-old man admitted with a suspected CVA, treated with tPA in the emergency room. On presentation, systolic blood pressure was uncontrolled, patient admits to noncompliance with antihypertensive therapy over 1 to 2 months. He has a history of coronary artery disease, and reports coronary stents placed several years ago, his state inspector is at [facility]. On presentation, he is on Plavix therapy. An echocardiogram done on this presentation shows left ventricular ejection fraction 35 to 40%, moderate severity left ventricular dysfunction. Negative bubble study on the echocardiogram. His coronary disease and ischemic cardiomyopathy asymptomatic. Recommendations: We will optimize medical therapy including dual oral antiplatelets, afterload agents, beta-blockers, statin and other guideline directed medical management. As outpatient, will recommend a 30-day event monitor to rule out occult atrial tachyarrhythmias. Further ischemic evaluation of his coronary disease and ischemic cardiomyopathy will also be recommended for the outpatient setting with his primary state inspector. Subjective Date of service: 11/24/21 Principal diagnosis: Abnormal EKG, LV dysfunction Interval history: 51-year-old man who was admitted with a suspected CVA, received tPA in the emergency room. Currently he is more awake and alert, and able to give a proper history. He is under the care of doctors at the [facility], including a state inspector. Apparently, he has coronary artery disease and underwent coronary stent procedure several years ago. He still remains on baby aspirin and Plavix. On this presentation, his coronary artery disease is asymptomatic, no chest pain. An echocardiogram does reveal ischemic cardiomyopathy with left ventricular ejection fraction 35 to 40%. Objective Vital Signs Temp Pulse Pulse Resp BP Pulse Ox 11/24/21 08:00 98.1 F 75 20 177/103 95 11/24/21 04:03 98.8 F 75 20 148/87 93 11/24/21 04:00 77 11/24/21 00:13 74 181/107 11/24/21 00:00 77 98 11/23/21 23:00 75 23 128/77 93 11/23/21 22:00 82 18 156/93 90 11/23/21 21:46 84 154/96 11/23/21 21:00 85 22 169/101 95 11/23/21 20:00 99.4 F 82 25 H 169/101 97 11/23/21 19:30 83 17 165/103 98 11/23/21 19:00 87 87 18 169/101 97 11/23/21 18:30 82 13 165/103 98 11/23/21 18:00 85 16 169/106 97 11/23/21 17:33 83 184/129 11/23/21 17:30 80 17 181/121 94 11/23/21 17:00 187/136 97 11/23/21 16:30 80 19 180/97 98 11/23/21 16:26 98.7 F 11/23/21 16:13 83 186/100 11/23/21 16:00 80 82 24 186/100 96 11/23/21 15:30 82 18 187/100 97 11/23/21 15:00 87 15 187/99 98 11/23/21 14:30 86 23 187/99 98 11/23/21 14:00 83 18 171/99 98 11/23/21 13:30 89 17 185/110 94 11/23/21 13:00 84 18 162/96 96 11/23/21 12:30 80 23 185/110 96 - Physical Examination General: No Apparent Distress HEENT: Positive: PERRL Neck: Positive: neck supple Cardiac: Positive: Reg Rate and Rhythm Lungs: Positive: clear to auscultation Neuro: Positive: Grossly Intact Abdomen: Positive: Soft Skin: Positive: Clear Extremities: Absent: edema - Labs and Meds CBC 11/24/21 Range/Units 07:43 WBC 9.6 (4.5-11.0) K/mm3 RBC 4.89 (3.65-5.03) M/mm3 Hgb 14.5 (11.8-15.2) gm/dl Hct 44.1 (35.5-45.6) % Plt Count 269 (140-440) K/mm3
--- NOTE | 2021-11-24 13:30 | Progress Note ---
Assessment and Plan Assessment and plan: This is a 51-year-old male with CVA (2020 with residual weakness, decreased peripheral vision and stutter), HTN, IL (2019), HLD, and gout admitted with CVA #History of CVA with residual R-sided weakness, decreased peripheral vision and stutter (2020) #CVA vs TIA vs recrudescence of stroke-resolved -Per documentation family noted left-sided weakness -LKW 8 PM 11/21 -Initial NIHSS 7 -S/p tPA -Initial CT head shows no evidence of acute intracranial abnormality, chronic ischemic changes -CTA neck no indication of hemodynamic significant stenosis of the carotid bifurcations or elsewhere -CTA head shows calcified atherosclerotic plaque observed along the cavernous segments of both internal carotid arteries, stenosis in the order of 70% severity in the right cavernous sinus IAC, otherwise no indication of hemodynamically significant intracranial stenosis, no indication of large vessel occlusion -MRI brain, MRA head and neck pending -[address] head at 2200 11/22 showed no evidence of intracranial abnormality, no interval change, multifocal regions of remote cortical infarct and remote small deep infarctions noted -LVEF 35 to 40% negative contrast bubble study -continue ASA and lipitor 80mg qhs -PT/OT/ST consulted- recommends TERA, patient would like to be discharged home instead -Neurology consulted, appreciate recommendations -Patient would like to defer Vascular consult based on MRA results -Cardiology recommends outpatient monitoring device #Hypertensive emergency-resolved #history of HTN #EKG abnormalities -continue lisinopril and metoprolol at home doses -EKG concerning for pericarditis per ED physician read -Cardiology consulted, assistance appreciated #Acute hypoxic respiratory failure-resolved -currently on RA, likely secondary to pulmonary edema from hypertensive emergency #Type II diabetes with hyperglycemia -A1C 8.4% -patient takes metformin and glipizide outpatient -continue SSI + accuchecks while inpatient -patient will need to follow up with PCP for tighter glucose control #SIRS, POA, lactic acidosis (resolved) -Presented with leukocytosis, lactic acidosis, CXR with volume overload/CHF with interstitial edema -Lactic acid 2.6 on admit, now 1.3 -Monitor WBC and temperature curve #Obesity #Weight loss counseling #Exercise counseling - Counseled patient on the importance of weight loss, incorporating exercise, and dietary changes (lean meats, fresh fruits and vegetables, and water intake). Patient expresses understanding. - Time: +15 min #Advanced care planning -Disease education conducted, care plan discussed, diagnoses discussed, prognosis discussed, and patient acknowledges understanding with care plan -Time: +30 min History Interval history: No acute events overnight. Patient reports feeling well and near baseline. We discussed need for MRI and possible vascular surgery consult. Patient would like to be discharged as soon as MRI results. Patient lives at home with brother and already has a motorized wheelchair that he intends to use. Hospitalist Physical - Physical exam Narrative exam: GENERAL: Well-developed well-nourished. In no acute distress. HEENT: Normocephalic. Atraumatic. NECK: Supple. CHEST/LUNGS: CTAB on room air HEART/CARDIOVASCULAR: RRR. No murmur, rubs or gallops appreciated. ABDOMEN: +BS. NT/ND. SKIN: No rashes noted. NEURO: No focal motor deficit of cranial nerves. Decreased sensation of upper and lower R extremities and decreased strength on same side. L upper and lower extremities with normal ROM and strength. MUSCULOSKELETAL: No joint effusion EXTREMITIES: No cyanosis, clubbing or edema. PSYCH: Cooperative. - Constitutional Vitals: Temp Pulse Resp BP Pulse Ox 98.1 F 75 20 177/103 95 11/24/21 08:00 11/24/21 08:00 11/24/21 08:00 11/24/21 08:00 11/24/21 08:00 General appearance: Present: other (Patient appears stuporous, but breathing comfortably on facemask oxygen.) HEART Score - HEART Score Troponin: Troponin T < 0.010 ng/mL (0.00-0.029) 11/21/21 21:25 Results - Labs CBC & Chem 7: 11/24/21 07:43 11/23/21 04:00 Labs: Laboratory Last Values WBC 9.6 K/mm3 (4.5-11.0) 11/24/21 07:43 RBC 4.89 M/mm3 (3.65-5.03) 11/24/21 07:43 Hgb 14.5 gm/dl (11.8-15.2) 11/24/21 07:43 Hct 44.1 % (35.5-45.6) 11/24/21 07:43 MCV 90 fl (84-94) 11/24/21 07:43 MCH 30 pg (28-32) 11/24/21 07:43 MCHC 33 % (32-34) 11/24/21 07:43 RDW 15.1 % (13.2-15.2) 11/24/21 07:43 Plt Count 269 K/mm3 (140-440) 11/24/21 07:43 PT 13.3 Sec. (12.2-14.9) 11/21/21 21:25 INR 0.92 (0.87-1.13) 11/21/21 21:25 APTT 25.2 Sec. (24.2-36.6) 11/21/21 21:25 Sodium 140 mmol/L (137-145) 11/23/21 04:00 Potassium 3.9 mmol/L (3.6-5.0) 11/23/21 04:00 Chloride 103.4 mmol/L (98-107) 11/23/21 04:00 Carbon Dioxide 24 mmol/L (22-30) 11/23/21 04:00 Anion Gap 17 mmol/L 11/23/21 04:00 BUN 15 mg/dL (9-20) 11/23/21 04:00 Creatinine 0.8 mg/dL (0.8-1.3) 11/23/21 04:00 Estimated GFR > 60 ml/min 11/23/21 04:00 BUN/Creatinine Ratio 19 % 11/23/21 04:00 Glucose 158 mg/dL (75-100) H 11/23/21 04:00 POC Glucose 220 mg/dL (70-105) H 11/24/21 11:31 Hemoglobin A1c 8.4 % (4-6) H 11/22/21 10:00 Lactic Acid 1.30 mmol/L (0.7-2.0) 11/22/21 00:15 Calcium 9.5 mg/dL (8.4-10.2) 11/23/21 04:00 Magnesium 1.90 mg/dL (1.7-2.3) 11/21/21 21:25 Total Bilirubin 0.50 mg/dL (0.1-1.2) 11/21/21 21:25 AST 16 units/L (5-40) 11/21/21 21:25 ALT 12 units/L (7-56) 11/21/21 21:25 Alkaline Phosphatase 81 units/L (35-129) 11/21/21 21:25 Total Creatine Kinase 141 units/L (55-170) 11/21/21 22:01 Troponin T < 0.010 ng/mL (0.00-0.029) 11/21/21 21:25 NT-Pro-B Natriuret Pep 474.9 pg/mL (0-450) H 11/21/21 21:25 Total Protein 7.4 g/dL (6.3-8.2) 11/21/21 21:25 Albumin 4.3 g/dL (3.9-5) 11/21/21 21:25 Albumin/Globulin Ratio 1.4 % 11/21/21 21:25 Triglycerides 156 mg/dL (2-149) H 11/21/21 21:25 Cholesterol 234 mg/dL (50-199) H 11/21/21 21:25 LDL Cholesterol Direct 168 mg/dL (50-130) H 11/21/21 21:25 HDL Cholesterol 32 mg/dL (40-59) L 11/21/21 21:25 Cholesterol/HDL Ratio 7.31 % 11/21/21 21:25 Urine Color Straw (Yellow) 11/21/21 11:55 Urine Turbidity Clear (Clear) 11/21/21 11:55 Specific Edgar (Man) 1.005 (1.003-1.030) 11/21/21 11:55 Ur Protein (Man) 1+ mg/dL (Negative) 11/21/21 11:55 Ur Ketones (Man) Negative (Negative) 11/21/21 11:55 Ur Nitrite (Man) Negative (Negative) 11/21/21 11:55 Ur Reducing Substances Not Reportable 11/21/21 11:55 Urine Bilirubin (Man) Negative (Negative) 11/21/21 11:55 Urine Ictotest Not Reportable 11/21/21 11:55 Leukocyte Esterase (Man) Negative (Negative) 11/21/21 11:55 Urine WBC (Auto) 3.0 /HPF (0.0-6.0) 11/21/21 11:55 Urine RBC (Auto) 2.0 /HPF (0.0-6.0) 11/21/21 11:55 U Epithel Cells (Auto) 1.0 /HPF (0-13.0) 11/21/21 11:55 Urine RBC (Manual) 4+ (Negative) 11/21/21 11:55 Urine Mucus Few /HPF 11/21/21 11:55 Plasma/Serum Alcohol < 0.01 % (0-0.07) 11/21/21 22:01 Matta/IV: Voiding Method Condom Catheter Active Medications - Current Medications Current Medications: Generic Name Dose Route Start Last Admin Trade Name Freq PRN Reason Stop Dose Admin Acetaminophen 650 mg 11/21/21 23:12 Acetaminophen 325 Mg Tab PO Q4H PRN Pain MILD(1-3)/Fever >100.5/BANUELOS Aspirin 81 mg 11/23/21 12:00 11/24/21 12:07 Aspirin 81 Mg Tab Chew PO 81 mg QDAY SHARON Administration Atorvastatin Calcium 80 mg 11/23/21 22:00 11/23/21 21:46 Atorvastatin 40 Mg Tab PO 80 mg QHS SHARON Administration Citalopram Hydrobromide 20 mg 11/23/21 10:00 11/24/21 12:04 Citalopram 20 Mg Tab PO 20 mg QDAY SHAR[facility] Administration Clopidogrel Bisulfate 75 mg 11/23/21 10:00 11/24/21 12:05 Clopidogrel 75 Mg Tab PO 75 mg QDAY [facility] Administration Dextrose 50 ml 11/21/21 23:12 Dextrose 50% In Water (25gm) 50 Ml Syringe IV Q30MIN PRN Hypoglycemia Protocol Docusate Sodium 100 mg 11/22/21 22:00 11/24/21 12:07 Docusate Sodium 100 Mg Cap PO Not Given BID SHARON Famotidine 20 mg 11/23/21 10:00 11/24/21 12:04 Famotidine 20 Mg Tab PO 20 mg QDAY [facility] Administration Insulin Human Lispro 0 unit 11/22/21 16:30 11/24/21 12:17 Insulin Lispro 100 Unit/Ml SUB-Q 3 unit ACHS SHARON Administration Protocol Labetalol HCl 10 mg 11/22/21 13:41 11/24/21 00:13 Labetalol 20 Mg/4 Ml Inj IV 10 mg Q4HR PRN Administration hypertension Lisinopril 20 mg 11/23/21 15:00 11/24/21 12:05 Lisinopril 20 Mg Tab PO 20 mg QDAY SHARON Administration Ondansetron HCl 4 mg 11/21/21 23:12 11/22/21 19:15 Ondansetron 4 Mg/2 Ml Inj IV 4 mg Q8H PRN Administration Nausea And Vomiting Sodium Chloride 10 ml 11/22/21 10:00 11/24/21 12:06 Sodium Chloride 0.9% 10 Ml Flush Syringe IV 10 ml BID SHARON Administration Sodium Chloride 10 ml 11/21/21 23:12 Sodium Chloride 0.9% 10 Ml Flush Syringe IV PRN PRN LINE FLUSH Nutrition/Malnutrition Assess - Dietary Evaluation Nutrition/Malnutrition Findings: Nutrition Notes Start: 11/22/21 12:56 Freq: Status: Active Protocol: Document 11/23/21 13:56 [facility] (Rec: 11/23/21 14:00 [facility] [id number]) Nutrition Notes Initial or Follow up Brief Note Current Diagnosis Diabetes,Hypertension,Stroke, Hyperlipidemia Other Pertinent Diagnosis Hypertensive emergency Current Diet Cardiac/Consistent CHO Subjective/Other Information Pt not appropriate for diet education at this time. Nutrition Intervention Follow-Up By: 11/27/21 Additional Comments F/U: intakes, appropriateness for diet education (CHO- controlled, low Na Diet)
[2021-11-25] MEDS: ASPIRIN 81 MG TAB CHEW PO SCH (09:15)
[2021-11-25] MEDS: INSULIN LISPRO 100 UNIT/ML SUB-Q SCH ×2 (09:16→09:24)
[2021-11-25] MEDS: CITALOPRAM 20 MG TAB PO SCH (09:22)
[2021-11-25] MEDS: FAMOTIDINE 20 MG TAB PO SCH (09:22)
[2021-11-25] MEDS: CLOPIDOGREL 75 MG TAB PO SCH (09:22)
[2021-11-25] MEDS: DOCUSATE SODIUM 100 MG CAP PO SCH (09:25)
[2021-11-25 09:33] VITALS: BP 179/107
[2021-11-25] MEDS ORDERED: amLODIPine 10 MG TAB PO SCH (10:00)
[2021-11-25] MEDS ORDERED: LISINOPRIL 40 MG TAB PO SCH (10:00)
[2021-11-25] MEDS ORDERED: LORazepam 2 MG/ML VIAL IV NR (11:11)
--- NOTE | 2021-11-25 12:34 | Progress Note ---
Assessment and Plan - Patient Problems (1) Abnormal ECG Current Visit: Yes Status: Acute Plan to address problem: 51-year-old man admitted with a suspected CVA, treated with tPA in the emergency room. On presentation, systolic blood pressure was uncontrolled, patient admits to noncompliance with antihypertensive therapy over 1 to 2 months. He has a history of coronary artery disease, and reports coronary stents placed several years ago, his client development consultant is at [facility]. On presentation, he is on Plavix therapy. An echocardiogram done on this presentation shows left ventricular ejection fraction 35 to 40%, moderate severity left ventricular dysfunction. Negative bubble study on the echocardiogram. His coronary disease and ischemic cardiomyopathy asymptomatic. Recommendations: We will optimize medical therapy including dual oral antiplatelets, afterload agents, beta-blockers, statin and other guideline directed medical management. As outpatient, will recommend a 30-day event monitor to rule out occult atrial tachyarrhythmias. Further ischemic evaluation of his coronary disease and ischemic cardiomyopathy will also be recommended for the outpatient setting with his primary client development consultant. Subjective Date of service: 11/25/21 Principal diagnosis: Abnormal EKG, LV dysfunction Interval history: Patient is comfortable, no acute distress, no cardiac complaints, no new cardiac events. Objective Vital Signs Temp Pulse Resp BP Pulse Ox 11/25/21 09:22 179 H 11/25/21 09:21 179/107 11/25/21 07:48 98.6 F 80 179/106 95 11/25/21 06:53 98 11/25/21 04:00 82 11/24/21 16:08 98.5 F 79 18 179/107 97 - Physical Examination General: No Apparent Distress HEENT: Positive: PERRL Neck: Positive: neck supple Cardiac: Positive: Reg Rate and Rhythm Lungs: Positive: Decreased Breath Sounds Neuro: Positive: Grossly Intact Abdomen: Positive: Soft Skin: Positive: Clear Extremities: Absent: edema
[2021-11-25] MEDS ORDERED: NIFEdipine XL 30 MG TAB PO SCH (13:00)
--- NOTE | 2021-11-25 13:22 | Magnetic Resonance Report ---
MR brain wo con, MR MRA/MRV neck wo con, MR MRA/MRV head wo con INDICATION / CLINICAL INFORMATION: stroke-ams. TECHNIQUE: Multiplanar, multisequence MRI of the brain. MRA of the head and MRA of the neck are performed. 3-D/MIP reformats postprocessed. Percentage stenos is is determined by direct quantitative measurements of distal internal carotid artery diameter bill red with normal reference segments or by criteria similar to NASCET where applicable. COMPARISON: None available. FINDINGS: BRAIN: Intracranial: There is multifocal encephalomalacia and gliosis seen within the bilateral frontal, par ietal, and occipital lobes from remote infarctions. There are T2 signal hyperintensities involving th e centrum semiovale. The distribution infarctions and to the border zone etiology. There are a couple foci of restricted diffusion seen within the left centrum semiovale No hemorrhage. Ventricular calib er is normal. No extra-axial collection. No mass. No herniation. Orbits: No significant abnormality of visualized orbits. Sinuses/mastoid: No significant abnormality of visualized sinuses and mastoid air cells. Additional findings: None. MRA HEAD: Please note there is artifact involving the motion artifact cavernous sinus ICAs and basilar artery w hich makes it appear as if there is a dissection. This is artifactual. Intracranial vertebral arteries: No occlusion or significant stenosis. Basilar artery: No occlusion or significant stenosis. Posterior cerebral arteries: No occlusion or significant stenosis. Intracranial internal carotid arteries: There is atherosclerosis involving the cavernous ICAs which i s better evaluated on the CTA and there is no definite high-grade stenosis. No occlusion. Anterior cerebral arteries: Hypoplastic right A1 segment. No occlusion or significant stenosis. Middle cerebral arteries: No occlusion or significant stenosis. No aneurysm. Additional findings: None. MRA NECK: Cervical vertebral arteries: No occlusion or significant stenosis. Common carotid arteries: No occlusion or significant stenosis. Cervical internal carotid arteries: Atherosclerosis but no significant stenosis of the internal carot id artery origins. No occlusion or significant stenosis. Additional findings: None. IMPRESSION: 1. A couple of foci of restricted diffusion seen within left centrum semiovale most consistent with a cute to subacute infarctions. Multifocal sites of encephalomalacia from remote infarctions with morph ology suggesting watershed distribution. 2. No occlusion or significant stenosis of the major head and neck vasculature. Signer Name: Demarco Temple MD Signed: 11/25/2021 1:18 PM Workstation Name: [id number]
--- NOTE | 2021-11-25 14:38 | Discharge Summary ---
Providers - Providers Date of Admission: 11/21/21 23:12 Attending physician: MARCO ANTONIO MORFIN MD 11/21/21 Consult to Physician [CONS] Routine Comment: Consulting Provider: OMAIRA CHERRY Physician Instructions: Reason For Exam: Pericarditis 11/21/21 23:12 Consult to Dietitian/Nutrition [CONS] Routine Physician Instructions: Reason For Exam: Reason for Consult: Diet education Occupational Therapy Evaluate and Treat [CONS] Routine Comment: Reason For Exam: Neuro deficits Physical Therapy Evaluation and Treat [CONS] Routine Comment: Reason For Exam: Neuro deficits 11/21/21 23:19 Consult to Physician [CONS] Routine Comment: Consulting Provider: ROCKY HOPPER Physician Instructions: Reason For Exam: cva Primary care physician: FRANCO PHIPPS Hospitalization Condition: Stable Disposition: 30 STILL A PATIENT Exam - Constitutional Vitals: Temp Pulse Resp BP Pulse Ox 98.6 F 179 H 18 179/107 95 11/25/21 07:48 11/25/21 09:22 11/24/21 16:08 11/25/21 09:21 11/25/21 07:48 Plan Care Plan Goals: Please follow-up with your primary care provider within a week. Have them to refer you to a vascular surgeon for evaluation for cerebral atherosclerosis. 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 Purchase a blood pressure cuff as we discussed and record your blood pressure readings. Please take these readings to your PCP appointment to help them better titrate blood pressure medications. Continue taking all medications as they are prescribed to you. Your MRI that you have had recent strokes. The best way to prevent strokes is better blood pressure and blood sugar control. Follow up with: FRANCO PHIPPS MD [Primary Care Provider] - 3-5 Days Prescriptions: Aspirin [Adult Aspirin] 81 mg PO QDAY 30 Days #30 tab AtorvaSTATin [Lipitor] 2 tab PO DAILY 90 Days #180 tab Clopidogrel [Plavix] 75 mg PO QDAY 90 Days #90 tablet NIFEdipine XL [Procardia Xl] 30 mg PO QDAY 30 Days #30 tablet lisinopriL [Zestril TAB] 40 mg PO QDAY 90 Days #90 tab
== END 2021-11-25 18:33 | disposition home health service (06) | DRG 61 ==
LOC: ED 20:55 → EDBD 20:55 → CC1 23:12 → 4A 11-23 23:59
PROVIDERS: ADMIT Hospitalist; ATTEND Student in an Organized Health Care Education/Training Program
DX: I63.9 Cerebral infarction, unspecified (principal); J96.01 Acute respiratory failure with hypoxia; G81.91 Hemiplegia, unspecified affecting right dominant side; I16.1 Hypertensive emergency; E87.2 Acidosis; R65.10 Systemic inflammatory response syndrome (SIRS) of non-infectious origin without acute organ dysfunction; E87.1 Hypo-osmolality and hyponatremia; I10 Essential (primary) hypertension; E66.9 Obesity, unspecified; I25.2 Old myocardial infarction; E78.5 Hyperlipidemia, unspecified; M10.9 Gout, unspecified; Z68.36 Body mass index [BMI] 36.0-36.9, adult; E11.65 Type 2 diabetes mellitus with hyperglycemia; Z82.49 Family history of ischemic heart disease and other diseases of the circulatory system
CPT/HCPCS: 36415; 70450; 70496; 70498; 70544; 70547; 70551; 71045; 80048; 80053; 80061; 80320; 81001; 82140; 82550; 82962; 83036; 83735; 83880; 84484; 85027; 85610; 85730; 93005; 93306; 94640; 96374; 96375; 99285; G0378; J3490; Q9967; C8929; G0480; J0696; J1815; J1940; J2405; J2997